=== PATIENT | female | born 2000 | race Two or more races ===

== ENCOUNTER 2022-02-22 08:41 | Inpatient (IN) | payer MEDICAID, OTHER ==
[~2022-02-22] VITALS: Ht 154.9 cm; Wt 54.4 kg
[2022-02-22] MEDS ORDERED: DEXTROSE (50%) 50ML SYRG IV PRN (09:30)
[2022-02-22] MEDS ORDERED: InsuLIN R (HUMAN) 100 UNITS in SODIUM CHL 0.9% 99 ML IV SCH (09:30)
[2022-02-22] MEDS ORDERED: INSULIN LANTUS (GLARGINE) 1 /0.01ml (100units/ml) SC ONE (09:30)
[2022-02-22] MEDS: SODIUM CHLORIDE 0.9% 1,000 ML IV SCH ×6 (10:04→22:10)
[2022-02-22] MEDS: ACCU-CHEK COMFORT CURVE STRIP VI SCH ×9 (10:40→22:40)
[2022-02-22] MEDS ORDERED: ONDANSETRON HCL 4 MG/2 ML VIAL IV ONE (10:45)
[2022-02-22 10:56] LABS: Phosphorus 2.7 mg/dL (2.5-4.90)
[2022-02-22 11:06] LABS: Albumin 3.7 g/dL (3.4-5.0); Calcium 9.9 mg/dL (8.5-10.1); Potassium 5.3 mmol/L (3.5-5.1)
[2022-02-22 11:09] LABS: Bilirubin, Total 0.4 mg/dL (0.2-1.0); Total Protein 9.3 g/dL (6.4-8.2)
[2022-02-22] MEDS ORDERED: MORPHINE SULFATE INJ 2 MG/ml SYRG IV ONE (11:15)
[2022-02-22 11:17] LABS: Urine Bacteria FEW /hpf (None Seen); Urine Blood 2+ /uL (Negative); Urine Mucus FEW (None Seen); Urine Specific Gravity 1.025 (1.001-1.035); Urine WBC 5 /hpf (0 - 5)
[2022-02-22 11:23] LABS: BUN/Creatinine Ratio 23.6
[2022-02-22] MEDS ORDERED: SODIUM BICARBONATE 8.4 % INJ 50ML VIAL IV ONE (11:30)
[2022-02-22] MEDS ORDERED: NITROGLYCERIN 0.4 MG SL TAB SL PRN (12:00)
[2022-02-22] MEDS ORDERED: MORPHINE SULFATE INJ 2 MG/ml SYRG IV PRN (12:00)
[2022-02-22] MEDS ORDERED: SODIUM CHLORIDE 0.9% 1,000 ML IV SCH (13:30)
[2022-02-22 14:54] LABS: Basophils # (auto) 0.2 10 ^3/uL (0-0.2); Basophils % (auto) 0.8 % (0.0-2.0); Eosinophils # (auto) 0 10 ^3/uL (0-0.8); Eosinophils % (auto) 0.1 % (0.0-7.0); Hematocrit 38.7 % (36.0-46.0); Hemoglobin 13.1 g/dL (12.2-16.2); Lymphocytes % (auto) 4.3 % (10.0-50.0); Mean Corpuscular Hemoglobin 31.4 pg (28.0-32.0); Mean Corpuscular Hgb Conc. 33.9 g/dL (32.0-36.0); Mean Corpuscular Volume 92.5 fL (80.0-100.0); Monocytes # (auto) 1.4 10 ^3/uL (0-1.3); Monocytes % (auto) 5.8 % (0.0-12.0); Neutrophils # (auto) 21.1 10 ^3/uL (1.6-8.6); Red Blood Cells 4.19 10^6/uL (4.0-5.20); Red Cell Distribution Width 12.3 % (11.8-14.3); White Blood Cell 23.7 10^3/uL (4.4-10.8)
[2022-02-22 15:06] LABS: BUN/Creatinine Ratio 22.6; Calcium 8.6 mg/dL (8.5-10.1); Potassium 3.8 mmol/L (3.5-5.1)
[2022-02-22] MEDS ORDERED: SOD CHL 0.9%/ KCL 20MEQ 1,000 ML IV PRN (15:45)
[2022-02-22] MEDS ORDERED: LORazepam 0.5 MG TAB PO PRN (15:45)
[2022-02-22] MEDS ORDERED: cefTRIAXone 1GM/50ML D5W 50 ML IV ONE (15:45)
[2022-02-22] MEDS ORDERED: DOCUSATE SOD 100 MG CAP PO PRN (15:45)
[2022-02-22] MEDS ORDERED: PANTOPRAZOLE 40 MG/10 ML VIAL INJ IV ONE (15:45)
[2022-02-22] MEDS ORDERED: SODIUM CHLORIDE 0.9% 2,000 ML IV ONE (15:45)
[2022-02-22] MEDS ORDERED: hydrALAZINE HCL 20 MG/ML VL IV PRN (15:45)
[2022-02-22] MEDS ORDERED: LACTATED RINGER'S 2,000 ML IV ONE (15:45)
[2022-02-22] MEDS ORDERED: D5W/SOD CHLO 0.9% 1,000 ML IV PRN (15:45)
[2022-02-22 16:00] VITALS: BP 116/79
[2022-02-22] MEDS ORDERED: ALBUTEROL SULF 2.5 MG/0.5ML(0.5%) NEB SOLN NEB PRN (16:00)
[2022-02-22 16:16] LABS: Magnesium 2.8 mg/dL (1.6-2.6); Phosphorus 2.7 mg/dL (2.5-4.90)
[2022-02-22] MEDS: ONDANSETRON HCL 4 MG/2 ML VIAL IV PRN ×2 (16:49→22:03)
[2022-02-22] MEDS ORDERED: D5W 5% 1,000 ML IV PRN (17:45)
[2022-02-22 18:33] LABS: BUN/Creatinine Ratio 24.8; Calcium 8.1 mg/dL (8.5-10.1); Potassium 3.6 mmol/L (3.5-5.1)
[2022-02-22 18:38] LABS: INR 0.97 (0.9-1.15); Partial Thromboplastin Time 27.4 sec (23.6-33.0)
[2022-02-22] MEDS: ACETAMINOPHEN 325 MG TAB PO PRN (22:03)
[2022-02-22 22:39] LABS: BUN/Creatinine Ratio 19.4; Calcium 8.2 mg/dL (8.5-10.1); Potassium 3.3 mmol/L (3.5-5.1)
[2022-02-23] MEDS: ACCU-CHEK COMFORT CURVE STRIP VI SCH ×8 (00:04→21:04)
[2022-02-23 01:28] LABS: Calcium 7.8 mg/dL (8.5-10.1); Potassium 3.1 mmol/L (3.5-5.1)
[2022-02-23] MEDS: SODIUM CHLORIDE 0.9% 1,000 ML IV SCH ×4 (01:45→16:04)
[2022-02-23] MEDS: ONDANSETRON HCL 4 MG/2 ML VIAL IV PRN ×2 (04:54→15:45)
[2022-02-23] MEDS ORDERED: DEXTROSE (50%) 50ML SYRG IV PRN (05:30)
[2022-02-23 06:00] LABS: Basophils # (auto) 0 10 ^3/uL (0-0.2); Basophils % (auto) 0.1 % (0.0-2.0); Eosinophils # (auto) 0 10 ^3/uL (0-0.8); Hematocrit 32.5 % (36.0-46.0); Hemoglobin 11.3 g/dL (12.2-16.2); Lymphocytes # (auto) 1.1 10 ^3/uL (0.4-5.4); Lymphocytes % (auto) 7.4 % (10.0-50.0); Mean Corpuscular Hemoglobin 30.9 pg (28.0-32.0); Mean Corpuscular Hgb Conc. 34.8 g/dL (32.0-36.0); Mean Corpuscular Volume 88.9 fL (80.0-100.0); Monocytes # (auto) 1.2 10 ^3/uL (0-1.3); Neutrophils # (auto) 13.1 10 ^3/uL (1.6-8.6); Neutrophils % (auto) 84.5 % (37.0-80.0); Nucleated Red Blood Cells % 0.1 %; Red Blood Cells 3.66 10^6/uL (4.0-5.20); Red Cell Distribution Width 12.1 % (11.8-14.3); White Blood Cell 15.4 10^3/uL (4.4-10.8)
[2022-02-23 06:07] LABS: Albumin 2.5 g/dL (3.4-5.0); Calcium 8.1 mg/dL (8.5-10.1); Potassium 3.4 mmol/L (3.5-5.1)
[2022-02-23 06:11] LABS: BUN/Creatinine Ratio 14.9; Bilirubin, Total 0.2 mg/dL (0.2-1.0); Total Protein 6.5 g/dL (6.4-8.2)
[2022-02-23] MEDS ORDERED: PROMETHAZINE HCL 25 MG/ML 1ML IM ONE (06:15)
[2022-02-23] MEDS ORDERED: PROMETHAZINE HCL 25 MG/ML 1ML IV ONE (06:15)
[2022-02-23] MEDS ORDERED: BENAZEPRIL HCL 10 MG TAB PO SCH (10:00)
[2022-02-23] MEDS: PANTOPRAZOLE 40 MG/10 ML VIAL INJ IV SCH (10:02)
[2022-02-23] MEDS: cefTRIAXone 1GM/50ML D5W 50 ML IV SCH (10:02)
[2022-02-23] MEDS: ENOXAPARIN SOD 40 MG/0.4 ML SYRINGE SC SCH (10:03)
[2022-02-23] MEDS: INSULIN LANTUS (GLARGINE) 1 /0.01ml (100units/ml) SC SCH (10:03)
[2022-02-23 10:14] VITALS: BP 109/71
[2022-02-23 10:55] VITALS: BP 109/71
[2022-02-23] MEDS: ACETAMINOPHEN 325 MG TAB PO PRN (11:15)
[2022-02-23] MEDS: InsuLIN REG 1unit/0.01ml Soln (100units/ml) SC SCH ×4 (11:22→20:00)
[2022-02-23 12:44] LABS: BUN/Creatinine Ratio 11.5; Calcium 7.5 mg/dL (8.5-10.1); Potassium 3.3 mmol/L (3.5-5.1)
[2022-02-23] MEDS: MORPHINE SULFATE INJ 2 MG/ml SYRG IV PRN ×2 (15:46→21:45)
[2022-02-23] MEDS: SOD CHL 0.9%/ KCL 20MEQ 1,000 ML IV SCH ×2 (16:30→20:00)
[2022-02-23 16:56] VITALS: BP 132/82
[2022-02-23] MEDS ORDERED: INSU70IN3 SC (17:15)
[2022-02-23 22:00] VITALS: BP 120/75
[2022-02-24] MEDS: ACCU-CHEK COMFORT CURVE STRIP VI SCH ×5 (04:12→17:04)
[2022-02-24] MEDS: InsuLIN REG 1unit/0.01ml Soln (100units/ml) SC SCH ×5 (04:19→17:05)
[2022-02-24 04:51] VITALS: BP 131/86
[2022-02-24 06:19] LABS: Basophils # (auto) 0 10 ^3/uL (0-0.2); Basophils % (auto) 0.1 % (0.0-2.0); Eosinophils # (auto) 0 10 ^3/uL (0-0.8); Eosinophils % (auto) 0.1 % (0.0-7.0); Hematocrit 29.8 % (36.0-46.0); Hemoglobin 10.6 g/dL (12.2-16.2); Lymphocytes # (auto) 1.4 10 ^3/uL (0.4-5.4); Lymphocytes % (auto) 10.5 % (10.0-50.0); Mean Corpuscular Hgb Conc. 35.7 g/dL (32.0-36.0); Mean Corpuscular Volume 89.6 fL (80.0-100.0); Monocytes # (auto) 1.2 10 ^3/uL (0-1.3); Monocytes % (auto) 9.2 % (0.0-12.0); Neutrophils # (auto) 10.4 10 ^3/uL (1.6-8.6); Neutrophils % (auto) 80.1 % (37.0-80.0); Red Blood Cells 3.33 10^6/uL (4.0-5.20); Red Cell Distribution Width 11.9 % (11.8-14.3)
[2022-02-24 06:29] LABS: Calcium 7.6 mg/dL (8.5-10.1); Magnesium 2.1 mg/dL (1.6-2.6)
[2022-02-24 06:35] LABS: BUN/Creatinine Ratio 10.4
[2022-02-24 06:43] LABS: Potassium 2.6 mmol/L (3.5-5.1)
[2022-02-24 09:00] VITALS: BP 134/84
[2022-02-24] MEDS ORDERED: POTASSIUM CHL 20 Meq TABLET PO ONE (10:00)
[2022-02-24] MEDS: INSULIN LANTUS (GLARGINE) 1 /0.01ml (100units/ml) SC SCH (10:02)
[2022-02-24] MEDS: cefTRIAXone 1GM/50ML D5W 50 ML IV SCH (10:02)
[2022-02-24] MEDS: PANTOPRAZOLE 40 MG/10 ML VIAL INJ IV SCH (10:02)
[2022-02-24] MEDS: ENOXAPARIN SOD 40 MG/0.4 ML SYRINGE SC SCH (10:03)
[2022-02-24] MEDS ORDERED: DEXTROSE (50%) 50ML SYRG IV PRN (11:15)
[2022-02-24] MEDS: POTASSIUM CHL 20MEQ/100ML 100 ML IV SCH ×2 (11:28→16:30)
[2022-02-24 13:00] VITALS: BP 141/87
[2022-02-24] MEDS ORDERED: INSLANTI SC (13:34)
[2022-02-24] MEDS ORDERED: POTASSIUM CHL 20MEQ/100ML 100 ML IV ONE (16:17)
[2022-02-24 16:35] VITALS: BP 139/87
[2022-02-24 20:30] VITALS: BP 119/75
[2022-02-24 21:00] VITALS: BP 119/75
== END 2022-02-24 21:30 | disposition home or self-care (01) | DRG 420 ==
LOC: ER 08:41 → TELE 11:46 → TELE-WESTW 02-23 08:52
PROVIDERS: ADMIT Hospitalist; ATTEND Internal Medicine
DX: E10.10 Type 1 diabetes mellitus with ketoacidosis without coma (principal); N17.0 Acute kidney failure with tubular necrosis; R65.10 Systemic inflammatory response syndrome (SIRS) of non-infectious origin without acute organ dysfunction; E87.6 Hypokalemia; K29.00 Acute gastritis without bleeding; N18.31 Chronic kidney disease, stage 3a; E10.22 Type 1 diabetes mellitus with diabetic chronic kidney disease; J45.909 Unspecified asthma, uncomplicated; Z20.822 Contact with and (suspected) exposure to COVID-19; Z91.19 Patient's noncompliance with other medical treatment and regimen; Z79.4 Long term (current) use of insulin; Z83.3 Family history of diabetes mellitus
CPT/HCPCS: 36415; 36600; 71045; 80048; 80053; 80061; 81001; 82010; 82550; 82728; 82805; 82962; 83036; 83615; 83735; 83880; 83930; 84100; 84132; 84439; 84443; 84484; 84702; 85025; 85379; 85610; 85652; 85730; 87040; 87086; 93005; 96365; 96372; 96375; 99291; C9113; G0378; J0696; J1815; J2405; J3480

== ENCOUNTER 2022-08-01 00:41 | Inpatient (IN) | payer MEDICAID ==
[~2022-08-01] VITALS: Ht 167.6 cm; Wt 50.0 kg
[~2022-08-01 00:41] MED LIST: INSLANTI SC; INSU70IN3 SC
[2022-08-01] MEDS ORDERED: DEXTROSE 50% SYRINGE 100 ML IV ONE (00:59)
[2022-08-01] MEDS ORDERED: DEXTROSE (50%) 50ML SYRG IV ONE ×2 (01:30)
[2022-08-01] MEDS ORDERED: SODIUM CHLORIDE 0.9% 1,000 ML IVB ONE (02:00)
[2022-08-01 02:11] LABS: INR 1.03 (0.9-1.15); Partial Thromboplastin Time 29.9 sec (24.6-33.4)
[2022-08-01 02:13] LABS: Albumin 3.7 g/dL (3.4-5.0); BUN/Creatinine Ratio 21.5; Magnesium 2.1 mg/dL (1.6-2.6); Potassium 3.4 mmol/L (3.5-5.1)
[2022-08-01 02:33] LABS: Basophils # (auto) 0 10 ^3/uL (0-0.2); Basophils % (auto) 0.2 % (0.0-2.0); Eosinophils # (auto) 0.1 10 ^3/uL (0-0.8); Eosinophils % (auto) 0.7 % (0.0-7.0); Hematocrit 36.1 % (36.0-46.0); Hemoglobin 12.4 g/dL (12.2-16.2); Lymphocytes # (auto) 1.6 10 ^3/uL (0.4-5.4); Lymphocytes % (auto) 15.7 % (10.0-50.0); Mean Corpuscular Hemoglobin 30.2 pg (28.0-32.0); Mean Corpuscular Hgb Conc. 34.2 g/dL (32.0-36.0); Mean Corpuscular Volume 88.3 fL (80.0-100.0); Monocytes # (auto) 0.7 10 ^3/uL (0-1.3); Monocytes % (auto) 6.7 % (0.0-12.0); Neutrophils # (auto) 7.7 10 ^3/uL (1.6-8.6); Neutrophils % (auto) 76.7 % (37.0-80.0); Red Blood Cells 4.09 10^6/uL (4.0-5.20); Red Cell Distribution Width 15.5 % (11.8-14.3); White Blood Cell 10.1 10^3/uL (4.4-10.8)
[2022-08-01 02:44] LABS: Bilirubin, Total 0.3 mg/dL (0.2-1.0); Calcium 9.1 mg/dL (8.5-10.1); Total Protein 7.3 g/dL (6.4-8.2)
[2022-08-01 02:48] LABS: Urine Bacteria MOD /hpf (None Seen); Urine Blood Negative /uL (Negative); Urine WBC 5 /hpf (0 - 5)
[2022-08-01 02:58] LABS: Alcohol, Urine < 3.0 mg/dL (0-10); Amphetamine Screen, Urine NEGATIVE (NEGATIVE); Barbiturate Scree,Urine NEGATIVE (NEGATIVE); Benzodiazephine Screen, Urine NEGATIVE (NEGATIVE); Cannabinoid Screen, Urine NEGATIVE (NEGATIVE); Cocaine Screen, Urine NEGATIVE (NEGATIVE); Opiate Scree,Urine NEGATIVE (NEGATIVE); Phencyclidine Screen, Urine NEGATIVE (NEGATIVE)
[2022-08-01] MEDS ORDERED: DEXTROSE (50%) 50ML SYRG IV PRN (06:30)
[2022-08-01] MEDS ORDERED: ONDANSETRON HCL 4 MG/2 ML VIAL IV PRN (06:30)
[2022-08-01] MEDS ORDERED: DOCUSATE SOD 100 MG CAP PO PRN (06:30)
[2022-08-01] MEDS ORDERED: HYDROcodone-ACET 5/325MG TAB PO PRN (06:30)
[2022-08-01] MEDS ORDERED: POTASSIUM CHL 20 Meq TABLET PO ONE (06:30)
[2022-08-01] MEDS ORDERED: MORPHINE SULFATE INJ 2 MG/ml SYRG IV PRN (07:00)
[2022-08-01] MEDS ORDERED: NITROGLYCERIN 0.4 MG SL TAB SL PRN (07:00)
[2022-08-01 07:15] LABS: Calcium 8.3 mg/dL (8.5-10.1); Potassium 3.7 mmol/L (3.5-5.1)
[2022-08-01 07:18] LABS: Bilirubin, Total 0.3 mg/dL (0.2-1.0); Total Protein 6.1 g/dL (6.4-8.2)
[2022-08-01] MEDS: SODIUM CHLOR 0.9% PF (SALINE LOCK) 10ML VIAL/SYR IV SCH ×2 (08:14→08:15)
[2022-08-01] MEDS: ACETAMINOPHEN 325 MG TAB PO PRN ×5 (08:16→12:39)
[2022-08-01] MEDS ORDERED: InsuLIN REG 1unit/0.01ml Soln (100units/ml) SC SCH ×2 (12:00→18:00)
[2022-08-01] MEDS ORDERED: ACCU-CHEK COMFORT CURVE STRIP VI SCH (12:00)
[2022-08-01 12:35] VITALS: BP 124/67
== END 2022-08-01 15:11 | disposition left against medical advice (07) | DRG 420 ==
LOC: EDBD 00:41 → EDUNIT# 00:41 → ER 00:41 → OVERFLOW 06:49
PROVIDERS: ADMIT Nurse Practitioner Family; ATTEND Family Medicine
DX: E10.649 Type 1 diabetes mellitus with hypoglycemia without coma (principal); E10.65 Type 1 diabetes mellitus with hyperglycemia; Z53.29 Procedure and treatment not carried out because of patient's decision for other reasons; E87.6 Hypokalemia; J45.909 Unspecified asthma, uncomplicated; Z20.822 Contact with and (suspected) exposure to COVID-19; T38.3X1A Poisoning by insulin and oral hypoglycemic [antidiabetic] drugs, accidental (unintentional), initial encounter; Z82.1 Family history of blindness and visual loss; Z82.49 Family history of ischemic heart disease and other diseases of the circulatory system; Z83.3 Family history of diabetes mellitus; Z90.49 Acquired absence of other specified parts of digestive tract; Y92.89 Other specified places as the place of occurrence of the external cause
CPT/HCPCS: 36415; 70450; 71045; 80053; 80307; 80320; 81001; 81025; 82962; 83036; 83605; 83735; 84484; 85025; 85379; 85610; 85730; 87040; 87426; 96361; 96372; 96374; 99291; G0378; J1815

== ENCOUNTER → 2024-02-28 | Outpatient (CLI) | payer MEDICAID ==
[2024-02-28 15:11] LABS: Basophils # (auto) 0 10 ^3/uL (0-0.2); Basophils % (auto) 0.5 % (0.0-2.0); Eosinophils # (auto) 0.1 10 ^3/uL (0-0.8); Eosinophils % (auto) 1.9 % (0.0-7.0); Hematocrit 32.8 % (36.0-46.0); Hemoglobin 11.1 g/dL (12.2-16.2); Lymphocytes # (auto) 1.7 10 ^3/uL (0.4-5.4); Lymphocytes % (auto) 32.1 % (10.0-50.0); Mean Corpuscular Hemoglobin 30.5 pg (28.0-32.0); Mean Corpuscular Hgb Conc. 33.9 g/dL (32.0-36.0); Mean Corpuscular Volume 89.9 fL (80.0-100.0); Monocytes # (auto) 0.6 10 ^3/uL (0-1.3); Monocytes % (auto) 11.2 % (0.0-12.0); Neutrophils # (auto) 2.9 10 ^3/uL (1.6-8.6); Neutrophils % (auto) 54.3 % (37.0-80.0); Nucleated Red Blood Cells % 0.1 %; Red Blood Cells 3.65 10^6/uL (4.0-5.20); Red Cell Distribution Width 12.1 % (11.8-14.3); White Blood Cell 5.4 10^3/uL (4.4-10.8)
[2024-02-28 15:41] LABS: % Iron Saturation 39.9 % (15-50)
[2024-02-28 15:43] LABS: Ferritin 44.4 ng/mL (10-291)
[2024-02-28 15:44] LABS: Folate (Folic Acid) 13.92 ng/mL (>5.38)
== END | disposition home or self-care (01) ==
LOC: LAB 14:19
PROVIDERS: ATTEND Internal Medicine
DX: I10 Essential (primary) hypertension (principal); D64.9 Anemia, unspecified; E10.69 Type 1 diabetes mellitus with other specified complication; E10.29 Type 1 diabetes mellitus with other diabetic kidney complication
CPT/HCPCS: 36415; 82607; 82728; 82746; 83540; 83550; 85025

== ENCOUNTER 2024-03-14 18:41 | Emergency (ER) | payer MEDICAID ==
[~2024-03-14] VITALS: Ht 154.9 cm; Wt 76.6 kg
[2024-03-14 19:00] VITALS: BP 190/86; PULSE 87; RESP 18; O2SAT 99
[2024-03-14] MEDS ORDERED: FURO20TA3 PO (19:43)
== END 2024-03-14 19:42 | disposition home or self-care (01) ==
LOC: ER 18:41
DX: R60.0 Localized edema (principal); J45.909 Unspecified asthma, uncomplicated; E11.9 Type 2 diabetes mellitus without complications; Z98.890 Other specified postprocedural states; Z79.899 Other long term (current) drug therapy

== ENCOUNTER → 2024-03-18 | Outpatient (CLI) | payer MEDICAID ==
[~2024-03-18] MED LIST changes: +FURO20TA3 PO
[2024-03-18 12:45] LABS: Basophils # (auto) 0 10 ^3/uL (0-0.2); Basophils % (auto) 0.5 % (0.0-2.0); Eosinophils # (auto) 0.2 10 ^3/uL (0-0.8); Eosinophils % (auto) 2.4 % (0.0-7.0); Hematocrit 30.9 % (36.0-46.0); Hemoglobin 10.5 g/dL (12.2-16.2); Lymphocytes # (auto) 3.3 10 ^3/uL (0.4-5.4); Lymphocytes % (auto) 48.7 % (10.0-50.0); Mean Corpuscular Hemoglobin 30.7 pg (28.0-32.0); Mean Corpuscular Hgb Conc. 34.1 g/dL (32.0-36.0); Mean Corpuscular Volume 90.1 fL (80.0-100.0); Monocytes # (auto) 0.5 10 ^3/uL (0-1.3); Monocytes % (auto) 7.8 % (0.0-12.0); Neutrophils # (auto) 2.7 10 ^3/uL (1.6-8.6); Neutrophils % (auto) 40.6 % (37.0-80.0); Nucleated Red Blood Cells % 0.1 %; Red Blood Cells 3.43 10^6/uL (4.0-5.20); Red Cell Distribution Width 13.3 % (11.8-14.3); White Blood Cell 6.8 10^3/uL (4.4-10.8)
[2024-03-18 13:13] LABS: Anion Gap 5 (5-15); Carbon Dioxide 20 mmol/L (20-30); Chloride 110 mmol/L (98-107); Potassium 4.6 mmol/L (3.5-5.1); Sodium 135 mmol/L (136-145)
[2024-03-18 13:14] LABS: Calcium 8.7 mg/dL (8.5-10.1)
[2024-03-18 13:19] LABS: BUN/Creatinine Ratio 18.1 (10.0-20.0); Blood Urea Nitrogen 19 mg/dL (9-23); Glucose 101 mg/dL (74-106)
== END | disposition home or self-care (01) ==
LOC: LAB 12:24
PROVIDERS: ATTEND Internal Medicine
DX: I10 Essential (primary) hypertension (principal); E10.69 Type 1 diabetes mellitus with other specified complication; D64.9 Anemia, unspecified; E10.29 Type 1 diabetes mellitus with other diabetic kidney complication; T67.01 Heatstroke and sunstroke; X58.XXXS Exposure to other specified factors, sequela
CPT/HCPCS: 36415; 80048; 83880; 85025

== ENCOUNTER 2024-11-07 10:20 | Inpatient (IN) | payer MEDICAID ==
[~2024-11-07] VITALS: Ht 154.9 cm; Wt 73.9 kg
--- NOTE | 2024-11-07 10:50 | ED.PDOC ---
History of Present Illness HPI Comments 23 y/o F, presents to the ED for CC of abnormal labs. Patient states, she had a routine appointment with her PCP provider this morning (11/07/24) when she was relayed to the ED for a further evaluation due to high potassium levels and decreased kidney function. Patient comments on, associated symptoms of left leg swelling. Patient denies fever, chest pain, back pain, flank pain, dizziness, nausea, or vomiting. No other associated symptom's, modifiers, recent injuries or sick contact at this time. Chief Complaint: Abnormal LAB's Time Seen by MD: 10:30 Primary Care Provider: CHIRAG Reviewed Notes: Nurses Notes, Medications, Allergies Allergies: Coded Allergies: NO KNOWN ALLERGIES (Unverified , 02/22/22) Home Meds Active Scripts Furosemide (Furosemide) 20 Mg Tab, 1 TAB PO DAILY, #30 TAB 0 Refills Prov:ROBERT RUVALCABA PAC 03/14/24 Insulin Glargine (Lantus) 100 Unit/Ml Inj, 20 UNIT SC HS for 30 Days, #30 INJ Prov:ENDY DANIELSON MD 02/24/22 Reported Medications Insulin NPH Isophane & Reg (Hu (Novolin 70/30 (70-30) 100 Unit/ml) 1 Inj Inj, 1 INJ SC TID, INJ 02/23/22 Information Source: Patient Mode of Arrival: Ambulatory Severity: Mild Timing: Hours Duration: Since onset Prehospital treatment: None Past Medical History PAST MEDICAL HISTORY: Asthma, DM Surgical History: Cholecystectomy ACTIVITY SPECIALIST History: No Pertinent ACTIVITY SPECIALIST History Family History Family History: Reviewed,noncontributory to illness Social History Smoker: Non-Smoker Alcohol: Denies ETOH Use Drugs: Denies Drug Use Lives In: Home Constitutional: denies: chills, diaphoresis, fatigue, fever, malaise, sweats, weakness, others EENTM: denies: blurred vision, double vision, ear bleeding, ear discharge, ear drainage, ear pain, ear ringing, eye pain, eye redness, hearing loss, mouth pain, mouth swelling, nasal discharge, nose bleeding, nose congestion, nose pain, photophobia, tearing, throat pain, throat swelling, voice changes, others Respiratory: denies: cough, hemoptysis, orthopnea, SOB at rest, shortness of breath, SOB with excertion, stridor, wheezing, others Cardiovascular: denies: chest pain, dizzy spells, diaphoresis, Dyspnea on exertion, edema, irregular heart beat, left arm pain, lightheadedness, palpitations, PND, syncope, others Gastrointestinal: denies: abdomen distended, abdominal pain, blood streaked bowels, constipated, diarrhea, dysphagia, difficulty swallowing, hematemesis, melena, nausea, poor appetite, poor fluid intake, rectal bleeding, rectal pain, vomiting, others Genitourinary: denies: abnormal vagina bleeding, burning, dyspareunia, dysuria, flank pain, frequency, hematuria, incontinence, pain, , vagina discharge, urgency, others Neurological: denies: dizziness, fainting, headache, left sided numbness, left sided weakness, numbness, paresthesia, pre-existing deficit, right sided numbness, right sided weakness, seizure, speech problems, tingling, tremors, weakness, others Musculoskeletal: denies: back pain, gout, joint pain, joint swelling, muscle pain, muscle stiffness, neck pain, others Integumetry: denies: bruises, change in color, change in hair/nails, dryness, laceration, lesions, lumps, rash, wounds, others Allergic/Immunocompromised: denies: Difficulty Healing, Frequent Infections, Hives, Itching, others Hematologic/Lymphatic: denies: anemia, blood clots, easy bleeding, easy bruising, swollen glands, others Endocrine: denies: excessive hunger, excessive sweating, excessive thirst, excessive urination, flushing, intolerance to cold, intolerance to heat, unexplained weight gain, unexplained weight loss, others Psychiatric: denies: anxiety, bipolar disorder, depression, hopeless, panic disorder, schizophrenia, sleepless, suicidal, others All Other Systems: Reviewed and Negative Physical Exam General Appearance: Moderate Distress HEENT: Normal ENT Inspection, Pharynx Normal, TMs Normal Neck: Full Range of Motion, Non-Tender, Normal, Normal Inspection Respiratory: Chest Non-Tender, Lungs Clear, No Accessory Muscle Use, No Respiratory Distress, Normal Breath Sounds Cardiovascular: No Edema, No JVD, No Murmur, No Gallop, Normal Peripheral Pulses, Regular Rate/Rhythm Breast Exam: Deferred Gastrointestinal: No Organomegaly, Non Tender, No Pulsatile Mass, Normal Bowel Sounds, Soft Genitalia: Deferred Pelvic: Deferred Rectal: Deferred Extremities: Swelling (Left lower extremity) Musculoskeletal : Apperance: Normal Neurologic: Alert, willow worker II-XII nml as Tested, No Motor Deficits, Normal Affect, Normal Mood, No Sensory Deficits Cerebellar Function: Normal Reflexes: Normal Skin: Dry, Normal Color, Warm Peripheral Pulses: 3+ Radial (R), 3+ Radial (L) Lymphatic: No Adenopathy Was a procedure done? Was a procedure done?: No Differential Dx Considerations may include: Anemia Electrolyte imbalance X-Ray, Labs, Meds, VS Vital Signs Date Time Temp Pulse Resp B/P (MAP) Pulse Ox O2 Delivery O2 Flow Rate FiO2 11/07/24 14:15 152/85 11/07/24 13:05 98.5 76 16 155/86 (109) 100 98.5 11/07/24 13:05 76 16 100 Room Air* 0 21 11/07/24 12:50 16 99 Room Air* 0 21 11/07/24 10:53 98.3 87 18 156/85 (108) 99 Lab Test 11/07/24 16:10 11/07/24 14:19 11/07/24 11:23 Range/Units Potassium Level 4.9 5.3 H 3.5-5.1 mmol/L Urine Color Yellow Yellow Urine Clarity Hazy H Clear Urine pH 6.5 5.0-9.0 Urine Specific [place] 1.018 1.001-1.035 Urine Protein 3+ H Negative Urine Ketones Negative Negative Urine Blood 1+ H Negative /uL Urine Nitrite Negative Negative Urine Bilirubin Negative Negative Urine Urobilinogen Normal Negative mg/dL Urine Leukocyte Esterase Negative Negative /uL Urine RBC 1 0 - 4 /hpf Urine Microscopic WBC 10 H 0-5 /HPF Urine Squamous Epithelial Cells Mod <5 /hpf Urine Bacteria Few H None Seen /hpf Urine Glucose 2+ H Normal mg/dL White Blood Count 5.7 4.4-10.8 10^3/uL Red Blood Count 3.36 L 4.0-5.20 10^6/uL Hemoglobin 10.6 L 12.2-16.2 g/dL Hematocrit 31.1 L 36.0-46.0 % Mean Corpuscular Volume 92.7 80.0-100.0 fL Mean Corpuscular Hemoglobin 31.5 28.0-32.0 pg Mean Corpuscular Hemoglobin Concent 34.0 32.0-36.0 g/dL Red Cell Distribution Width 12.8 11.8-14.3 % Platelet Count 343 140-450 10^3/uL Mean Platelet Volume 7.5 6.9-10.8 fL Neutrophils (%) (Auto) 58.4 37.0-80.0 % Lymphocytes (%) (Auto) 27.4 10.0-50.0 % Monocytes (%) (Auto) 11.3 0.0-12.0 % Eosinophils (%) (Auto) 2.1 0.0-7.0 % Basophils (%) (Auto) 0.8 0.0-2.0 % Neutrophils # (Auto) 3.3 1.6-8.6 10 ^3/uL Lymphocytes # (Auto) 1.6 0.4-5.4 10 ^3/uL Monocytes # (Auto) 0.6 0-1.3 10 ^3/uL Eosinophils # (Auto) 0.1 0-0.8 10 ^3/uL Basophils # (Auto) 0 0-0.2 10 ^3/uL Nucleated Red Blood Cells 0.0 % Sodium Level 139 136-145 mmol/L Chloride Level 110 H 98-107 mmol/L Carbon Dioxide Level 22 20-31 mmol/L Anion Gap 7 5-15 Blood Urea Nitrogen 22 9-23 mg/dL Creatinine 1.49 H 0.550-1.02 mg/dL Glomerular Filtration Rate Calc 50 >90 mL/min BUN/Creatinine Ratio 14.8 10.0-20.0 Serum Glucose 224 H 74-106 mg/dL Calcium Level 9.0 8.7-10.4 mg/dL Current Medications Medications (Trade) Dose Ordered Sig/Piedad Route Start Time Stop Time Status Last Admin Albuterol (Ventolin Medneb) 20 mg ONCE ONCE NEB 11/07/24 12:30 11/07/24 12:31 DC 11/07/24 12:30 Furosemide (Lasix Injection) 20 mg ONCE ONCE IV 11/07/24 12:30 11/07/24 12:31 DC 11/07/24 14:15 Zirconium Oxide (Lokelma) 10 gm ONCE ONCE PO 11/07/24 12:30 11/07/24 12:31 DC 11/07/24 13:00 [facility] [id number] [place] [id number] Ph: [phone] DIAGNOSTIC IMAGING Diagnostic Imaging Report : [id number] Signed PATIENT: MARIO HALL ACCT: [id number] UNIT: [id number] : 2000 LOC: ER ROOM / BED: / AGE / SEX: 23 / F ADM STATUS: REG ER SERVICE [id number] ORDERING PHYSICIAN: AKIL HALEY MD PROCEDURE(s): LLDVT - LT Lower DVT REASON: dvt ORDER NUMBER(s): [id number], ACCESSION NUMBER(s): [id number] Left lower extremity venous duplex Clinical History: dvt Comparison: None Technique: Duplex Doppler evaluation of the deep venous system of the left lower extremity from the common femoral vein to the popliteal vein including color Doppler and spectral/pulsed waveform analysis was performed. Findings: The common femoral vein demonstrates appropriate compressibility and waveform variability. There is compressibility/patency of the great saphenous vein at the proximal th igh. The femoral vein demonstrates appropriate compressibility and waveform variability. The deep femoral vein demonstrates appropriate compressibility and waveform variability. The popliteal vein demonstrates appropriate compressibility and waveform va riability. There is normal compressibility at the tibioperoneal trunk. Impression: No left femoropopliteal venous thrombosis. ATED BY: RUSTY MENDEZ MD DICTATED DATE/TIME: 11/07/24 1141 SIGNED BY: RUSTY MENDEZ MD SIGNED DATE/TIME: 11/07/24 1141 CC: Patient alert. Came in because of elevated potassium level. Possibly false positive. Vitals stable. She does have swelling of the left lower extremity. No shortness a breath. No chest pain. Potassium elevated. Hyperkalemia treatment. Blood sugar elevated. Explained to the patient. Continue to monitor. Time of 1ST Reevaluation: 11:00 Reevaluation 1ST: Improved Patient Education/Counseling: Diagnosis, Treatment Family Education/Counseling: No Family Present Additional Information I reviewed the following notes from patient's past medical history: 03/14/24 DX: 1+ PITTING EDEMA The following tests were ordered, and results were reviewed by me: LT LOWER DVT US, CBC, UA, BMP I reviewed and agreed with the following test results read by other providers: LT LOWER DVT US I discussed treatment and results with medical personnel and: PATIENT Departure 1 Departure Time of Disposition: 10:55 Impression: Primary Impression: Uncontrolled diabetes mellitus Qualified Codes: E13.65 - Other specified diabetes mellitus with hyperglycemia Additional Impression: Hyperkalemia Disposition: ADMITTED INPATIENT Admit to: Med Surg Condition: Guarded Critical Care Note Critical Care Time?: No Stability Stability form required: No Heart Score Heart Score: Heart Score Response (Comments) Value History N/A 0 EKG N/A 0 Age N/A 0 Risk Factors N/A 0 Troponin N/A 0 Total 0 I personally scribed for AKIL HALEY MD ([email or web address]) on 11/07/24 at 10:50. Electronically submitted by Paty Zamora ([employer]). I personally scribed for AKIL HALEY MD ([email or web address]) on 11/07/24 at 11:01. Electronically submitted by Paty Zamora ([facility]). I personally scribed for AKIL HALEY MD ([email or web address]) on 11/07/24 at 17:07. Electronically submitted by Paty Zamora ([facility]). AKIL HALEY MD Nov 07, 2024 10:50
--- NOTE | 2024-11-07 11:43 | DVH ---
Left lower extremity venous duplex Clinical History: dvt Comparison: None Technique: Duplex Doppler evaluation of the deep venous system of the left lower extremity from the common femor al vein to the popliteal vein including color Doppler and spectral/pulsed waveform analysis was perfo rmed. Findings: The common femoral vein demonstrates appropriate compressibility and waveform variability. There is compressibility/patency of the great saphenous vein at the proximal thigh. The femoral vein demonstrates appropriate compressibility and waveform variability. The deep femoral vein demonstrates appropriate compressibility and waveform variability. The popliteal vein demonstrates appropriate compressibility and waveform variability. There is normal compressibility at the tibioperoneal trunk. Impression: No left femoropopliteal venous thrombosis.
[2024-11-07 12:08] LABS: Basophils # (auto) 0 10 ^3/uL (0-0.2); Basophils % (auto) 0.8 % (0.0-2.0); Eosinophils # (auto) 0.1 10 ^3/uL (0-0.8); Eosinophils % (auto) 2.1 % (0.0-7.0); Hematocrit 31.1 % (36.0-46.0); Hemoglobin 10.6 g/dL (12.2-16.2); Lymphocytes # (auto) 1.6 10 ^3/uL (0.4-5.4); Lymphocytes % (auto) 27.4 % (10.0-50.0); Mean Corpuscular Hemoglobin 31.5 pg (28.0-32.0); Mean Corpuscular Volume 92.7 fL (80.0-100.0); Monocytes # (auto) 0.6 10 ^3/uL (0-1.3); Monocytes % (auto) 11.3 % (0.0-12.0); Neutrophils # (auto) 3.3 10 ^3/uL (1.6-8.6); Neutrophils % (auto) 58.4 % (37.0-80.0); Platelet Count (auto) 343 10^3/uL (140-450); Red Blood Cells 3.36 10^6/uL (4.0-5.20); Red Cell Distribution Width 12.8 % (11.8-14.3); Sodium 139 mmol/L (136-145); White Blood Cell 5.7 10^3/uL (4.4-10.8)
[2024-11-07 12:09] LABS: Anion Gap 7 (5-15); Carbon Dioxide 22 mmol/L (20-31)
[2024-11-07 12:14] LABS: BUN/Creatinine Ratio 14.8 (10.0-20.0); Blood Urea Nitrogen 22 mg/dL (9-23)
[2024-11-07 12:18] LABS: Chloride 110 mmol/L (98-107); Glucose 224 mg/dL (74-106); Potassium 5.3 mmol/L (3.5-5.1)
[2024-11-07] MEDS: ALBUTEROL SULF 2.5 MG/0.5ML(0.5%) NEB SOLN NEB ONE (12:30)
[2024-11-07] MEDS: SODIUM ZIRCONIUM CYCL 10 GM PAK PO ONE (13:00)
[2024-11-07 13:05] VITALS: PULSE 76; RESP 16; O2SAT 100
[2024-11-07] MEDS: FUROSEMIDE 20 MG/2 ML VIAL IV ONE (14:15)
[2024-11-07 14:25] LABS: Urine Bacteria FEW /hpf (None Seen); Urine Blood 1+ /uL (Negative); Urine Color Yellow (Yellow); Urine Protein, UAD 3+ (Negative); Urine Specific Gravity 1.018 (1.001-1.035); Urine Squamous Epithelial Cell MOD /hpf (<5); Urine Urobilinogen Normal (Negative); Urine WBC 10 /HPF (0-5); Urine pH 6.5 (5.0-9.0)
[2024-11-07 14:37] LABS: Urine Clarity Hazy (Clear)
[2024-11-07 20:00] VITALS: PULSE 89; RESP 16; O2SAT 100
[2024-11-07] MEDS: DEXTROSE (50%) 50ML SYRG IV ONE (21:13)
[2024-11-07] MEDS: CALCIUM GLUC 1,000mg/50ml-NS 50 ML IV ONE (21:13)
[2024-11-07] MEDS: InsuLIN REG 1unit/0.01ml Soln (100units/ml) IV ONE (21:14)
[2024-11-07] MEDS: SODIUM BICARB 8.4% 50Meq/50ml SYR INJ IV ONE (21:14)
[2024-11-07 21:35] LABS: Triglycerides 136 mg/dL (< 150)
[2024-11-07 21:36] LABS: LDL Cholesterol 66 mg/dL (< 100)
[2024-11-07 21:38] LABS: Cholesterol 137 mg/dL (< 200); HDL Cholesterol 51 mg/dL (40-59)
--- NOTE | 2024-11-07 21:40 | DVHHPRES ---
History of Present Illness Resident Creating Document: RAMIREZ FERNÁNDEZ History of Present Illness This is a 23-year-old female with past medical history of hypertension, asthma, type 1 diabetes mellitus diagnosed since the age of [age] years old (patient has an insulin pump). The patient presented to the ED referred by her PCP due to hyperkalemia and decreased kidney function. The patient reports that she has been having bilateral lower extremity swelling that is more prominent on the left lower extremity. The patient is denies fever/chills, chest pain, shortness of breath, abdominal pain or any other additional symptoms. Initial labs showed a WBC of 5.7, hemoglobin of 10.6, potassium was 5.3, BUN 22 and creatinine 1.49. Blood glucose was 224. Urinalysis came back suggesting UTI, we ordered a bilateral lower extremity venous Doppler which showed no evidence of DVT at this time. We will order kidney ultrasound and renal artery ultrasound to check for fibromuscular dysplasia or renal artery stenosis. We will also order urine protein, urine protein to creatinine ratio to calculate total urine protein for possible nephrotic syndrome. Patient will be admitted for further assessment and management. Cardiovascular: HTN Pulmonary: Asthma Endocrine: Diabetes (Type 1 diabetes since 9 years of age and is currently using an insulin pump) Past Surgical History: None Family History: None Smoke: No ALCOHOL: none Drugs: None Lives: with Family Domestic Violence: Neg Review of Systems Constitutional: No: Fever, Chills, Sweats, Weakness, Malaise, Other Eyes: No: Pain, Vision change, Conjunctivae inflammation, Eyelid inflammation, Other, Redness ENT: No: Ear pain, Ear discharge, Nose pain, Nose discharge, Nose congestion, Mouth pain, Mouth swelling, Throat pain, Throat swelling, Other Respiratory: No: Cough, Dry, Shortness of breath, SOB with excertion, Wheezing, Hemoptysis, Pleuritic Pain, Sputum, Wheezing, Other Cardiovascular: No: Chest Pain, Palpitations, Orthopnea, Paroxysmal Noc. Dyspnea, Edema, Lt Headedness, Other Gastrointestinal: No: Nausea, Vomiting, Abdominal Pain, Diarrhea, Constipation, Melena, Hematochezia, Other Genitourinary: No Dysuria, No Frequency, No Incontinence, No Hematuria, No Retention, No Other Musculoskeletal: other (Bilateral lower extremity edema that is more prominent on the left lower extremity); No: neck pain, shoulder pain, arm pain, back pain, hand pain, leg pain, foot pain Skin: No: Rash, Lesions, Jaundice, Bruising, Other Neurological: No: Weakness, Numbness, Incoordination, Change in speech, Confusion, Seizures, Other Allergies: Coded Allergies: NO KNOWN ALLERGIES (Unverified , 02/22/22) Medications Current Medications Medications Dose Ordered Sig/Piedad Route Start Time Stop Time Status Last Admin Dose Admin Acetaminophen 650 mg Q6HP PRN PO 11/07/24 21:00 Exam Vital Signs Vital Signs Date Time Temp Pulse Resp B/P (MAP) Pulse Ox O2 Delivery O2 Flow Rate FiO2 11/07/24 14:15 152/85 11/07/24 13:05 98.5 76 16 100 98.5 11/07/24 13:05 Room Air* 0 21 General Appearance: Alert, Oriented X3, Cooperative, No acute distress HEENT: Atraumatic, PERRLA, EOMI, Mucous membr. moist/pink Respiratory: Clear to auscultation, Normal air movement Cardiovascular: Regular rate, Normal S1, Normal S2, No murmurs Abdominal: Normal bowel sounds, Soft, No tenderness, No hepatospenomegaly Extremities: No clubbing, No cyanosis, No edema, Normal pulses, Other (There is bilateral lower extremity swelling that is more prominent on the left lower extremity.) Skin: No rashes, No breakdown, No significant lesion Neuro: Normal gait, Normal speech, Strength at 5/5 X4 ext, Normal tone, Sensation intact, Cranial nerves 3-12 NL, Reflexes 2+ Psych/Mental Status: Mental status NL, Mood NL Labs/Xrays Labs Test 11/07/24 20:49 11/07/24 16:10 11/07/24 14:19 11/07/24 11:23 Range/Units Potassium Level 4.9 3.5-5.1 mmol/L Urine Color Yellow Yellow Urine Clarity Hazy H Clear Urine pH 6.5 5.0-9.0 Urine Specific [place] 1.018 1.001-1.035 Urine Protein 3+ H Negative Urine Ketones Negative Negative Urine Blood 1+ H Negative /uL Urine Nitrite Negative Negative Urine Bilirubin Negative Negative Urine Urobilinogen Normal Negative mg/dL Urine Leukocyte Esterase Negative Negative /uL Urine RBC 1 0 - 4 /hpf Urine Microscopic WBC 10 H 0-5 /HPF Urine Squamous Epithelial Cells Mod <5 /hpf Urine Bacteria Few H None Seen /hpf Urine Glucose 2+ H Normal mg/dL White Blood Count 5.7 4.4-10.8 10^3/uL Red Blood Count 3.36 L 4.0-5.20 10^6/uL Hemoglobin 10.6 L 12.2-16.2 g/dL Hematocrit 31.1 L 36.0-46.0 % Mean Corpuscular Volume 92.7 80.0-100.0 fL Mean Corpuscular Hemoglobin 31.5 28.0-32.0 pg Mean Corpuscular Hemoglobin Concent 34.0 32.0-36.0 g/dL Red Cell Distribution Width 12.8 11.8-14.3 % Platelet Count 343 140-450 10^3/uL Mean Platelet Volume 7.5 6.9-10.8 fL Neutrophils (%) (Auto) 58.4 37.0-80.0 % Lymphocytes (%) (Auto) 27.4 10.0-50.0 % Monocytes (%) (Auto) 11.3 0.0-12.0 % Eosinophils (%) (Auto) 2.1 0.0-7.0 % Basophils (%) (Auto) 0.8 0.0-2.0 % Neutrophils # (Auto) 3.3 1.6-8.6 10 ^3/uL Lymphocytes # (Auto) 1.6 0.4-5.4 10 ^3/uL Monocytes # (Auto) 0.6 0-1.3 10 ^3/uL Eosinophils # (Auto) 0.1 0-0.8 10 ^3/uL Basophils # (Auto) 0 0-0.2 10 ^3/uL Nucleated Red Blood Cells 0.0 % Sodium Level 139 136-145 mmol/L Chloride Level 110 H 98-107 mmol/L Carbon Dioxide Level 22 20-31 mmol/L Anion Gap 7 5-15 Blood Urea Nitrogen 22 9-23 mg/dL Creatinine 1.49 H 0.550-1.02 mg/dL Glomerular Filtration Rate Calc 50 >90 mL/min BUN/Creatinine Ratio 14.8 10.0-20.0 Serum Glucose 224 H 74-106 mg/dL Calcium Level 9.0 8.7-10.4 mg/dL Assessment/Plan Assessment/Plan Assessment/plan KD on CKD Nephrotic syndrome, possible diabetic nephropathy? R/O fibromuscular dysplasia -young 23-year-old female with hypertension recent onset of lisinopril and KD -ordered kidney ultrasound -urinalysis showed 3+ protein -ordered renal artery Doppler -ordered urine protein, urine protein to creatinine ratio Acute hyperkalemia -potassium on admission was 5.3 -hyperkalemia protocol administered, insulin 10 units, dextrose, albuterol, Lasix, bicarb amp, Lokelma and calcium amp -currently potassium level more stable, on range -stop lisinopril at this time UTI -UA suggesting UTI -Start IV ceftriaxone Primary hypertension -stop lisinopril which could be contributing to hyperkalemia -Hydralazine 25mg BID -Monitor BP closely Type 1 diabetes mellitus (diagnosed at the age of [age] years old) -currently on insulin pump -monitor blood glucose closely Asthma, stable -currently on room air, monitor Goals of care discussed with the patient at bedside for >30min, FULL CODE Discussed with Dr. Melara Plan discussed with: Patient My Orders Orders - RAMIREZ FERNÁNDEZ Procedure Category Date Status Time Admit ADMIT 11/07/24 Transmitted 20:49 Code Status CODE 11/07/24 Transmitted 20:49 Vital Signs NEFTALI 11/07/24 In Process 20:49 Review Orders With NEFTALI 11/07/24 In Process Adm. 20:49 Encourage Activity As NEFTALI 11/07/24 In Process Tolerate 20:49 Regular Diet DIET 11/08/24 Transmitted Breakfast Acetaminophen Tablet PHA 11/07/24 In Process (Tylenol Tablet) 21:00 Notify Of Changes NEFTALI 11/07/24 In Process From Base 20:49 Advance Directive NEFTALI 11/07/24 In Process 20:49 Basic Metabolic Panel LAB 11/08/24 Verified 04:00 Lipid Panel LAB 11/07/24 In Process 20:49 Urine Bacterial ROCCO 11/07/24 Logged Culture 20:49 Patient Condition ORDERS 11/07/24 Transmitted 20:49 Allergies NEFTALI 11/07/24 In Process 20:49 Drug Screen LAB 11/07/24 Logged 20:49 Hemoglobin A1c LAB 11/07/24 In Process 20:49 Renal Artery Lmtd US 11/07/24 Logged 20:59 Urine LAB 11/07/24 Logged Protein/Creatinine Urine Protein LAB 11/07/24 Logged 20:59 Date of Service: Nov 07, 2024 Billing Provider: RISHI MELARA MD Common Visit Codes: [id number] INP/OBS CARE (HIGH) RAMIREZ FERNÁNDEZ RESIDENT Nov 07, 2024 21:40 RISHI MELARA MD Nov 08, 2024 11:19
[2024-11-07 22:26] VITALS: BP 162/87; PULSE 82; TEMP 98.4; O2SAT 100
[2024-11-07 22:36] LABS: Creatinine, Urine 93.22 mg/dL (30.0-125.0)
[2024-11-07 22:39] LABS: Amphetamine Screen, Urine Neg (NEGATIVE); Barbiturate Scree,Urine Neg (NEGATIVE); Benzodiazephine Screen, Urine Neg (NEGATIVE); Cannabinoid Screen, Urine Neg (NEGATIVE); Cocaine Screen, Urine Neg (NEGATIVE); Opiate Scree,Urine Neg (NEGATIVE); Phencyclidine Screen, Urine Neg (NEGATIVE); Urine Protein/Creatinine Ratio 7.88
[2024-11-07] MEDS: hydrALAZINE HCL 25 MG TAB PO SCH (22:39)
[2024-11-07] MEDS: ACETAMINOPHEN 325 MG TAB PO PRN (22:41)
[2024-11-07 23:23] VITALS: BP 137/90; PULSE 82; RESP 18; TEMP 98; O2SAT 99
[2024-11-08] VITALS (7 sets, daily range): BP systolic 114–148; BP diastolic 71–89; PULSE 55–94; RESP 16–19; TEMP 97.5–98.3; O2SAT 98–99
[2024-11-08] MEDS ORDERED: DEXTROSE (50%) 50ML SYRG IV PRN (01:45)
[2024-11-08] MEDS: ACCU-CHEK COMFORT CURVE STRIP VI SCH (06:25)
[2024-11-08] MEDS: cefTRIAXone 1GM/50ML D5W 50 ML IV SCH (06:25)
[2024-11-08] MEDS: InsuLIN REG 1unit/0.01ml Soln (100units/ml) SC SCH (06:33)
[2024-11-08 06:52] LABS: Basophils # (auto) 0 10 ^3/uL (0-0.2); Basophils % (auto) 0.4 % (0.0-2.0); Eosinophils # (auto) 0.1 10 ^3/uL (0-0.8); Eosinophils % (auto) 1.3 % (0.0-7.0); Hemoglobin 10.4 g/dL (12.2-16.2); Lymphocytes % (auto) 33.7 % (10.0-50.0); Mean Corpuscular Hemoglobin 31.2 pg (28.0-32.0); Mean Corpuscular Hgb Conc. 33.5 g/dL (32.0-36.0); Mean Corpuscular Volume 93.3 fL (80.0-100.0); Monocytes # (auto) 0.9 10 ^3/uL (0-1.3); Monocytes % (auto) 14.6 % (0.0-12.0); Nucleated Red Blood Cells % 0.1 %; Platelet Count (auto) 312 10^3/uL (140-450); Red Blood Cells 3.33 10^6/uL (4.0-5.20); Red Cell Distribution Width 12.8 % (11.8-14.3); White Blood Cell 6.1 10^3/uL (4.4-10.8)
[2024-11-08 07:02] LABS: Alanine Aminotransferase 20 U/L (7-40); Albumin 3.4 g/dL (3.2-4.8); Alkaline Phosphatase 85 U/L (46-116); Anion Gap 9 (5-15); Aspartate Aminotransferase 20 U/L (13-40); BUN/Creatinine Ratio 17.8 (10.0-20.0); Bilirubin, Total 0.3 mg/dL (0.2-1.0); Calcium 8.7 mg/dL (8.7-10.4); Sodium 138 mmol/L (136-145)
[2024-11-08 07:04] LABS: Blood Urea Nitrogen 26 mg/dL (9-23); Carbon Dioxide 18 mmol/L (20-31); Chloride 111 mmol/L (98-107); Glucose 174 mg/dL (74-106); Potassium 5.2 mmol/L (3.5-5.1); Total Protein 5.4 g/dL (5.7-8.2)
--- NOTE | 2024-11-08 09:27 | DVHINCON2 ---
Date of service: Nov 08, [address] Odell Reason for Consultation Acute kidney injury History of Present Illness Patient is 23-year-old female with past medical history of diabetes mellitus type 1 since age of 9 and asthma patient is admitted for abnormal lab and bilateral lower extremity swelling. On admission patient found to have elevated creatinine nephrology is consulted for acute kidney injury Past Medical History PAST MEDICAL HISTORY: Asthma, DM type 1 since age 9 Past Surgical History Surgical History: Cholecystectomy Allergies: Coded Allergies: NO KNOWN ALLERGIES (Unverified , 02/22/22) Home Meds Active Scripts Furosemide (Furosemide) 20 Mg Tab, 1 TAB PO DAILY, #30 TAB 0 Refills Prov:ROBERT RUVALCABA PAC 03/14/24 Insulin Glargine (Lantus) 100 Unit/Ml Inj, 20 UNIT SC HS for 30 Days, #30 INJ Prov:ENDY DANIELSON MD 02/24/22 Reported Medications Insulin NPH Isophane & Reg (Hu (Novolin 70/30 (70-30) 100 Unit/ml) 1 Inj Inj, 1 INJ SC TID, INJ 02/23/22 Current Medications Current Medications Medications (Trade) Dose Ordered Sig/Piedad Route PRN Reason Start Time Stop Time Status Last Admin Acetaminophen (Tylenol Tablet) 650 mg Q6HP PRN PO PAIN SCALE 1-3 OR TEMP>100.4 11/07/24 21:00 11/07/24 22:41 Hydralazine HCl (Apresoline Tablet) 25 mg BID PO 11/07/24 22:00 11/08/24 09:44 Diagnostic Test (Pha) (Accu-Chek Comfort Curve T) 1 strip ACHS 11/08/24 07:00 11/08/24 11:30 Insulin Human Regular (InsuLIN R) ACHS SC 11/08/24 07:00 11/08/24 12:26 Dextrose 50 ml UD PRN IV Blood Sugar LESS THAN 60 11/08/24 01:45 Ceftriaxone Sodium 50 ml @ 100 mls/hr Q24H IV 11/08/24 05:30 11/08/24 06:25 Furosemide (Lasix Injection) 40 mg DAILY IV 11/08/24 14:00 Family History: Alcoholism FHx: blindness G8 FATHER FHx: diabetes mellitus G8 MOTHER G8 FATHER FHx: heart failure G8 MOTHER G8 FATHER FHx: kidney disease G8 MOTHER FHx: neuropathy G8 MOTHER Glaucoma in mother G8 MOTHER Hepatitis B G8 FATHER Review of Systems All 12 item review of systems reviewed with the patient nonsignificant except what is mentioned in the history of present illness H&P Exam Vital Signs/I&O Vital Sign Date Time Temp Pulse Resp B/P (MAP) Pulse Ox O2 Delivery O2 Flow Rate FiO2 11/08/24 09:44 136/77 11/08/24 09:00 97.7 81 17 98 97.7 11/08/24 08:00 Room Air* 0 21 Intake and Output 11/07/24 11/08/24 19:00 07:00 Intake Total 540 ml Balance 540 ml Intake Oral 540 ml # Voids 4 Physical Exam Patient is awake and alert Lungs clear to auscultation bilaterally Cardiac exam regular rate and rhythm GI soft nontender was normal Extremities 1+ pitting edema bilaterally Neuro nonfocal Labs/Diagnostic Data Labs/Diagnostic Data Laboratory Tests Test 11/08/24 06:20 11/08/24 05:37 11/07/24 16:10 11/07/24 14:19 Range/Units POC Glucose 190 H 70-106 mg/dl White Blood Count 6.1 4.4-10.8 10^3/uL Red Blood Count 3.33 L 4.0-5.20 10^6/uL Hemoglobin 10.4 L 12.2-16.2 g/dL Hematocrit 31.0 L 36.0-46.0 % Mean Corpuscular Volume 93.3 80.0-100.0 fL Mean Corpuscular Hemoglobin 31.2 28.0-32.0 pg Mean Corpuscular Hemoglobin Concent 33.5 32.0-36.0 g/dL Red Cell Distribution Width 12.8 11.8-14.3 % Platelet Count 312 140-450 10^3/uL Mean Platelet Volume 7.8 6.9-10.8 fL Neutrophils (%) (Auto) 50.0 37.0-80.0 % Lymphocytes (%) (Auto) 33.7 10.0-50.0 % Monocytes (%) (Auto) 14.6 H 0.0-12.0 % Eosinophils (%) (Auto) 1.3 0.0-7.0 % Basophils (%) (Auto) 0.4 0.0-2.0 % Neutrophils # (Auto) 3.0 1.6-8.6 10 ^3/uL Lymphocytes # (Auto) 2.0 0.4-5.4 10 ^3/uL Monocytes # (Auto) 0.9 0-1.3 10 ^3/uL Eosinophils # (Auto) 0.1 0-0.8 10 ^3/uL Basophils # (Auto) 0 0-0.2 10 ^3/uL Nucleated Red Blood Cells 0.1 % Sodium Level 138 136-145 mmol/L Potassium Level 5.2 H 4.9 3.5-5.1 mmol/L Chloride Level 111 H 98-107 mmol/L Carbon Dioxide Level 18 L 20-31 mmol/L Anion Gap 9 5-15 Blood Urea Nitrogen 26 H 9-23 mg/dL Creatinine 1.46 H 0.550-1.02 mg/dL Glomerular Filtration Rate Calc 51 >90 mL/min BUN/Creatinine Ratio 17.8 10.0-20.0 Serum Glucose 174 H 74-106 mg/dL Calcium Level 8.7 8.7-10.4 mg/dL Total Bilirubin 0.3 0.2-1.0 mg/dL Aspartate Amino Transferase (AST) 20 13-40 U/L Alanine Aminotransferase (ALT) 20 7-40 U/L Alkaline Phosphatase 85 46-116 U/L Total Protein 5.4 L 5.7-8.2 g/dL Albumin 3.4 3.2-4.8 g/dL Triglycerides Level 136 < 150 mg/dL Cholesterol Level 137 < 200 mg/dL LDL Cholesterol 66 < 100 mg/dL HDL Cholesterol 51 40-59 mg/dL Urine Color Yellow Yellow Urine Clarity Hazy H Clear Urine pH 6.5 5.0-9.0 Urine Specific [place] 1.018 1.001-1.035 Urine Protein 3+ H Negative Urine Ketones Negative Negative Urine Blood 1+ H Negative /uL Urine Nitrite Negative Negative Urine Bilirubin Negative Negative Urine Urobilinogen Normal Negative mg/dL Urine Leukocyte Esterase Negative Negative /uL Urine RBC 1 0 - 4 /hpf Urine Microscopic WBC 10 H 0-5 /HPF Urine Squamous Epithelial Cells Mod <5 /hpf Urine Bacteria Few H None Seen /hpf Urine Creatinine 93.22 30.0-125.0 mg/dL Urine Protein/Creatinine Ratio 7.88 Urine Glucose 2+ H Normal mg/dL Urine Total Protein 735.0 H 1-14 mg/dL Urine Opiates Screen Neg NEGATIVE Urine Fentanyl Screen Neg NEGATIVE Urine Barbiturates Screen Neg NEGATIVE Urine Phencyclidine Screen Neg NEGATIVE Urine Amphetamines Screen Neg NEGATIVE Urine Benzodiazepines Screen Neg NEGATIVE Urine Cocaine Screen Neg NEGATIVE Urine Cannabinoids Screen Neg NEGATIVE Test 11/07/24 11:23 Range/Units White Blood Count 5.7 4.4-10.8 10^3/uL Red Blood Count 3.36 L 4.0-5.20 10^6/uL Hemoglobin 10.6 L 12.2-16.2 g/dL Hematocrit 31.1 L 36.0-46.0 % Mean Corpuscular Volume 92.7 80.0-100.0 fL Mean Corpuscular Hemoglobin 31.5 28.0-32.0 pg Mean Corpuscular Hemoglobin Concent 34.0 32.0-36.0 g/dL Red Cell Distribution Width 12.8 11.8-14.3 % Platelet Count 343 140-450 10^3/uL Mean Platelet Volume 7.5 6.9-10.8 fL Neutrophils (%) (Auto) 58.4 37.0-80.0 % Lymphocytes (%) (Auto) 27.4 10.0-50.0 % Monocytes (%) (Auto) 11.3 0.0-12.0 % Eosinophils (%) (Auto) 2.1 0.0-7.0 % Basophils (%) (Auto) 0.8 0.0-2.0 % Neutrophils # (Auto) 3.3 1.6-8.6 10 ^3/uL Lymphocytes # (Auto) 1.6 0.4-5.4 10 ^3/uL Monocytes # (Auto) 0.6 0-1.3 10 ^3/uL Eosinophils # (Auto) 0.1 0-0.8 10 ^3/uL Basophils # (Auto) 0 0-0.2 10 ^3/uL Nucleated Red Blood Cells 0.0 % Sodium Level 139 136-145 mmol/L Potassium Level 5.3 H 3.5-5.1 mmol/L Chloride Level 110 H 98-107 mmol/L Carbon Dioxide Level 22 20-31 mmol/L Anion Gap 7 5-15 Blood Urea Nitrogen 22 9-23 mg/dL Creatinine 1.49 H 0.550-1.02 mg/dL Glomerular Filtration Rate Calc 50 >90 mL/min BUN/Creatinine Ratio 14.8 10.0-20.0 Serum Glucose 224 H 74-106 mg/dL Hemoglobin A1c 6.7 H <5.7 % A1C Calcium Level 9.0 8.7-10.4 mg/dL Assessment Acute kidney injury superimposed Chronic Kidney Disease secondary hemodynamic mediated Uncontrolled diabetes mellitus Nephrotic syndrome likely diabetic nephropathy, UPCr > 7 Hyperkalemia Hypertension Anemia of chronic kidney disease Recommendations Closely monitor fluid and electrolytes Avoid nephrotoxic medications Strict I&Os Lokelma Furosemide 40 mg once daily Insulin sliding scale Blood pressure control Check kidney ultrasound We will continue to follow Patient seen and examined by myself. I discussed my plan of care with the patient and primary nurse at the bedside I would like to thank Dr. Odell for the consult, will follow up Plan discussed with: Patient JOHN DAUGHERTY MD Nov 08, 2024 09:27
--- NOTE | 2024-11-08 09:37 | DVH ---
INDICATION: POSSIBLE FIBROMUSCULAR DYSPLASIA (HTN IN VERY YOUNG WOMEN) TECHNIQUE: Multiple real-time sonographic images of the kidneys and bladder were obtained. Duplex Doppler evaluation including color Doppler and spectral/pulsed waveform analysis of the bilate ral renal arteries was performed. COMPARISON: None FINDINGS: The right kidney measures 9.4 cm in length. The right renal echogenicity, contour and cortical thickn ess are within normal limits. No hydronephrosis or large masses/calculi are seen. The left kidney measures 9.9 cm in length. The left renal echogenicity, contour, and cortical thickne ss are within normal limits. No hydronephrosis or large masses/calculi are seen. Aorta peak systolic velocity, 111 cm/s Right renal artery peak systolic velocity, 101 cm/s (< 180 cm/s = normal). Left renal artery peak systolic velocity 149 cm/s (< 180 cm/s = normal). Right RAR : 0.9 (< 3.5, normal) Left RAR 0.8 (< 3.5, normal) Right RI: 0.6 (< 0.75, normal) Left RI: 0.8 (< 0.75, normal) IMPRESSION: No findings to suggest renal artery stenosis. *[employer] Techniques in Noninvasive Vascular Diagnosis 2001
[2024-11-08] MEDS: FUROSEMIDE 40 MG/4 ML VIAL IV SCH (14:05)
[2024-11-08] MEDS: InsuLIN REG 1unit/0.01ml Soln (100units/ml) SC ONE (17:13)
--- NOTE | 2024-11-08 19:39 | DVHPN2 ---
Subjective in bed resting, no nausea or vomiting Changes from previous H/P or p: No Changes Eyes: No Pain, No Vision change, No Conjunctivae inflammation, No Eyelid inflammation, No Other, No Redness ENT: No Ear pain, No Ear discharge, No Nose pain, No Nose discharge, No Nose congestion, No Mouth pain, No Mouth swelling, No Throat pain, No Throat swelling, No Other Cardiovascular: No Chest Pain, No Palpitations, No Orthopnea, No Paroxysmal Noc. Dyspnea, No Edema, No Lt Headedness, No Other Respiratory: No Cough, No Dry, No Shortness of breath, No SOB with excertion, No Wheezing, No Hemoptysis, No Pleuritic Pain, No Sputum, No Other Gastrointestinal: No Nausea, No Vomiting, No Abdominal Pain, No Diarrhea, No Constipation, No Melena, No Hematochezia, No Other Genitourinary: No Dysuria, No Frequency, No Incontinence, No Hematuria, No Retention, No Other Musculoskeletal: other (Bilateral lower extremity edema that is more prominent on the left lower extremity); No neck pain, No shoulder pain, No arm pain, No back pain, No hand pain, No leg pain, No foot pain Skin: No Rash, No Lesions, No Jaundice, No Bruising, No Other Objective Vitals Vital Signs Date Time Temp Pulse Resp B/P (MAP) Pulse Ox O2 Delivery O2 Flow Rate FiO2 11/08/24 17:00 98.1 79 17 133/89 (104) 99 98.1 11/08/24 08:00 Room Air* 0 21 Intake/Output Intake and Output 11/08/24 07:00 Intake Total 540 ml Balance 540 ml Intake Oral 540 ml # Voids 4 General Appearance: Alert, Oriented X3, Cooperative Lungs: Clear to auscultation Cardiovascular: Regular rate, Normal S1 Abdomen: Normal bowel sounds Neuro: Normal gait Medications Current Medications Medications Dose Ordered Sig/Piedad Route Start Time Stop Time Status Last Admin Dose Admin Acetaminophen 650 mg Q6HP PRN PO 11/07/24 21:00 11/07/24 22:41 650 MG Hydralazine HCl 25 mg BID PO 11/07/24 22:00 11/08/24 09:44 25 MG Diagnostic Test (Pha) 1 strip ACHS 11/08/24 07:00 11/08/24 17:14 1 STRIP Insulin Human Regular ACHS SC 11/08/24 07:00 11/08/24 17:13 10 UNITS Dextrose 50 ml UD PRN IV 11/08/24 01:45 Ceftriaxone Sodium 50 ml @ 100 mls/hr Q24H IV 11/08/24 05:30 11/08/24 06:25 100 MLS/HR Furosemide 40 mg DAILY IV 11/08/24 14:00 11/08/24 14:05 40 MG Laboratory Results Laboratory Tests 11/08/24 05:37 Chemistry Test 11/08/24 05:37 Albumin 3.4 g/dL (3.2-4.8) Calcium Level 8.7 mg/dL (8.7-10.4) Total Protein 5.4 g/dL (5.7-8.2) L LFT Test 11/08/24 05:37 Alanine Aminotransferase (ALT) 20 U/L (7-40) Alkaline Phosphatase 85 U/L (46-116) Aspartate Amino Transferase (AST) 20 U/L (13-40) Total Bilirubin 0.3 mg/dL (0.2-1.0) Urinalysis Test 11/07/24 14:19 Urine Color Yellow (Yellow) Urine Clarity Hazy (Clear) H Urine pH 6.5 (5.0-9.0) Urine Specific [place] 1.018 (1.001-1.035) Urine Protein 3+ (Negative) H Urine Ketones Negative (Negative) Urine Blood 1+ /uL (Negative) H Urine Nitrite Negative (Negative) Urine Bilirubin Negative (Negative) Urine Urobilinogen Normal mg/dL (Negative) Urine Leukocyte Esterase Negative /uL (Negative) Urine RBC 1 /hpf (0 - 4) Urine Microscopic WBC 10 /HPF (0-5) H Urine Squamous Epithelial Cells Mod /hpf (<5) Urine Bacteria Few /hpf (None Seen) H Urine Creatinine 93.22 mg/dL (30.0-125.0) Urine Protein/Creatinine Ratio 7.88 Urine Glucose 2+ mg/dL (Normal) H Urine Total Protein 735.0 mg/dL (1-14) H Microbiology Microbiology Date/Time Source Procedure Growth Status 11/08/24 11:00 Voided Urine Urine Culture - Preliminary Resulted Assessment/Plan Assessment/Plan KD on CKD Nephrotic syndrome, possible diabetic nephropathy? R/O fibromuscular dysplasia -young 23-year-old female with hypertension recent onset of lisinopril and KD -ordered kidney ultrasound -urinalysis showed 3+ protein -ordered renal artery Doppler -ordered urine protein, urine protein to creatinine ratio Acute hyperkalemia -potassium on admission was 5.3 -hyperkalemia protocol administered, insulin 10 units, dextrose, albuterol, Lasix, bicarb amp, Lokelma and calcium amp -currently potassium level more stable, on range -stop lisinopril at this time UTI -UA suggesting UTI -Start IV ceftriaxone Primary hypertension -stop lisinopril which could be contributing to hyperkalemia -Hydralazine 25mg BID -Monitor BP closely Type 1 diabetes mellitus (diagnosed at the age of [age] years old) -currently on insulin pump -monitor blood glucose closely Asthma, stable -currently on room air, monitor Plan discussed with: Patient Date of Service: Nov 08, 2024 Billing Provider: ZACKARY STEIN MD Common Visit Codes: [id number] INP/OBS CARE(HIGH) ZACKARY STEIN MD Nov 08, 2024 19:39
[2024-11-09] VITALS (7 sets, daily range): BP systolic 111–149; BP diastolic 63–92; PULSE 76–89; RESP 18–20; TEMP 97.6–98.2; O2SAT 95–99
[2024-11-09 09:07] LABS: Anti-Centromere B Antibody <0.2 AI (0.0-0.9); Anti-Jo-1 Antibody <0.2 AI (0.0-0.9); Anti-dsDNA Antibody 2 IU/mL (0-9); Antichromatin Antibody <0.2 AI (0.0-0.9); Antiscleroderma-70 Antibody <0.2 AI (0.0-0.9); RNP Antibody <0.2 AI (0.0-0.9); Sjogren's Anti-SS-A Antibody <0.2 AI (0.0-0.9); Sjogren's Anti-SS-B Antibody <0.2 AI (0.0-0.9); Smith Antibody <0.2 AI (0.0-0.9)
--- NOTE | 2024-11-09 09:19 | DVHPN2 ---
Progress Note Date Seen: Nov 09, 2024 Medical Necessity Reason Pt with a Central, PICC or Fol: No Subjective Patient reports: No new complaints Other Systems: Patient seen and examined by myself today in follow-up Objective vital signs Vital Sign Date Time Temp Pulse Resp B/P (MAP) Pulse Ox O2 Delivery O2 Flow Rate FiO2 11/09/24 09:07 123/71 11/09/24 05:00 97.7 85 20 95 97.7 11/08/24 20:00 Room Air* 0 21 Total Intake and Output 11/08/24 11/08/24 11/09/24 15:00 23:00 07:00 Intake Total 1080 ml 430 ml Balance 1080 ml 430 ml medications Current Medications Medications Dose Ordered Sig/Piedad Route Start Time Stop Time Status Last Admin Dose Admin Acetaminophen 650 mg Q6HP PRN PO 11/07/24 21:00 11/07/24 22:41 650 MG Hydralazine HCl 25 mg BID PO 11/07/24 22:00 11/09/24 09:07 25 MG Diagnostic Test (Pha) 1 strip ACHS 11/08/24 07:00 11/09/24 06:47 1 STRIP Insulin Human Regular ACHS SC 11/08/24 07:00 11/09/24 06:54 3 UNITS Dextrose 50 ml UD PRN IV 11/08/24 01:45 Ceftriaxone Sodium 50 ml @ 100 mls/hr Q24H IV 11/08/24 05:30 11/09/24 06:54 100 MLS/HR Furosemide 40 mg DAILY IV 11/08/24 14:00 11/09/24 09:07 40 MG Examination: LUNGS:Normal, CVS:Normal, MSK:Abnormal laboratory and microbiology Laboratory Tests 11/09/24 05:47 11/08/24 05:37 Test 11/08/24 05:37 Range/Units Serum Glucose 174 H 74-106 mg/dL Microbiology Date/Time Source Procedure Growth Status 11/08/24 11:00 Voided Urine Urine Culture - Preliminary Resulted Problem List/Assessment/Plan Problem List/Assessment/Plan Acute kidney injury superimposed Chronic Kidney Disease secondary hemodynamic mediated Uncontrolled diabetes mellitus Nephrotic syndrome likely diabetic nephropathy, UPCr > 7 Hyperkalemia Hypertension Anemia of chronic kidney disease Recommendations Kidney function slightly improving Increased urine output Hypokalemia resolved Strict I&Os Furosemide 40 mg once daily Insulin sliding scale Blood pressure control Low-protein diet kidney ultrasound reported within normal We will continue to follow Plan discussed with: Patient My Orders My Orders Orders - JOHN DAUGHERTY MD Procedure Category Date Status Time Furosemide Injection PHA 11/08/24 In Process (Lasix Injection) 14:00 Renal DIET 11/08/24 Transmitted Standard(2gna,3gk,Lopho) Lunch JOHN DAUGHETRY MD Nov 09, 2024 09:19
[2024-11-09 11:25] LABS: Basophils # (auto) 0 10 ^3/uL (0-0.2); Basophils % (auto) 0.8 % (0.0-2.0); Eosinophils # (auto) 0.1 10 ^3/uL (0-0.8); Eosinophils % (auto) 1.8 % (0.0-7.0); Hematocrit 32.3 % (36.0-46.0); Hemoglobin 10.9 g/dL (12.2-16.2); Lymphocytes # (auto) 2.1 10 ^3/uL (0.4-5.4); Lymphocytes % (auto) 36.8 % (10.0-50.0); Mean Corpuscular Hemoglobin 31.5 pg (28.0-32.0); Mean Corpuscular Hgb Conc. 33.6 g/dL (32.0-36.0); Monocytes # (auto) 0.7 10 ^3/uL (0-1.3); Monocytes % (auto) 12.4 % (0.0-12.0); Neutrophils # (auto) 2.7 10 ^3/uL (1.6-8.6); Neutrophils % (auto) 48.2 % (37.0-80.0); Nucleated Red Blood Cells % 0.1 %; Platelet Count (auto) 322 10^3/uL (140-450); Red Blood Cells 3.44 10^6/uL (4.0-5.20); Red Cell Distribution Width 12.5 % (11.8-14.3); White Blood Cell 5.7 10^3/uL (4.4-10.8)
[2024-11-09 11:45] LABS: Alanine Aminotransferase 21 U/L (7-40); Alkaline Phosphatase 93 U/L (46-116); Anion Gap 11 (5-15); Aspartate Aminotransferase 22 U/L (13-40); Chloride 107 mmol/L (98-107)
[2024-11-09 11:46] LABS: Bilirubin, Total 0.3 mg/dL (0.2-1.0); Blood Urea Nitrogen 26 mg/dL (9-23); Calcium 8.6 mg/dL (8.7-10.4); Carbon Dioxide 17 mmol/L (20-31); Glucose 183 mg/dL (74-106); Sodium 135 mmol/L (136-145); Total Protein 5.6 g/dL (5.7-8.2)
[2024-11-09 11:47] LABS: Albumin 3.4 g/dL (3.2-4.8)
[2024-11-09 13:37] LABS: Chloride 100 mmol/L (98-107); Potassium 4.6 mmol/L (3.5-5.1)
[2024-11-09 13:38] LABS: Anion Gap 7 (5-15); Carbon Dioxide 21 mmol/L (20-31)
[2024-11-09 13:39] LABS: Calcium 8.8 mg/dL (8.7-10.4)
[2024-11-09 13:43] LABS: BUN/Creatinine Ratio 14.3 (10.0-20.0)
[2024-11-09 13:54] LABS: Sodium 128 mmol/L (136-145)
[2024-11-09 13:57] LABS: Blood Urea Nitrogen 26 mg/dL (9-23); Glucose 451 mg/dL (74-106)
[2024-11-09] MEDS: SODIUM CHLORIDE 0.9% 1,000 ML IV SCH (14:15)
[2024-11-09] MEDS: InsuLIN REG 1unit/0.01ml Soln (100units/ml) SC ONE (15:10)
--- NOTE | 2024-11-09 17:57 | DVHPN2 ---
Subjective in bed resting, no nausea or vomiting Changes from previous H/P or p: No Changes Eyes: No Pain, No Vision change, No Conjunctivae inflammation, No Eyelid inflammation, No Other, No Redness ENT: No Ear pain, No Ear discharge, No Nose pain, No Nose discharge, No Nose congestion, No Mouth pain, No Mouth swelling, No Throat pain, No Throat swelling, No Other Cardiovascular: No Chest Pain, No Palpitations, No Orthopnea, No Paroxysmal Noc. Dyspnea, No Edema, No Lt Headedness, No Other Respiratory: No Cough, No Dry, No Shortness of breath, No SOB with excertion, No Wheezing, No Hemoptysis, No Pleuritic Pain, No Sputum, No Other Gastrointestinal: No Nausea, No Vomiting, No Abdominal Pain, No Diarrhea, No Constipation, No Melena, No Hematochezia, No Other Genitourinary: No Dysuria, No Frequency, No Incontinence, No Hematuria, No Retention, No Other Musculoskeletal: other (Bilateral lower extremity edema that is more prominent on the left lower extremity); No neck pain, No shoulder pain, No arm pain, No back pain, No hand pain, No leg pain, No foot pain Skin: No Rash, No Lesions, No Jaundice, No Bruising, No Other Objective Vitals Vital Signs Date Time Temp Pulse Resp B/P (MAP) Pulse Ox O2 Delivery O2 Flow Rate FiO2 11/09/24 16:39 97.9 89 18 119/71 (87) 99 97.9 11/09/24 08:00 Room Air* 0 21 Intake/Output Intake and Output 11/09/24 07:00 Intake Total 1510 ml Balance 1510 ml Intake Oral 1510 ml # Voids 9 # Bowel Movements 1 General Appearance: Alert, Oriented X3, Cooperative Lungs: Clear to auscultation Cardiovascular: Regular rate, Normal S1 Abdomen: Normal bowel sounds Neuro: Normal gait Medications Current Medications Medications Dose Ordered Sig/Piedad Route Start Time Stop Time Status Last Admin Dose Admin Acetaminophen 650 mg Q6HP PRN PO 11/07/24 21:00 11/09/24 09:19 650 MG Hydralazine HCl 25 mg BID PO 11/07/24 22:00 11/09/24 09:07 25 MG Diagnostic Test (Pha) 1 strip ACHS 11/08/24 07:00 11/09/24 11:59 1 STRIP Insulin Human Regular ACHS SC 2/21/25 07:00 11/09/24 12:07 10 UNITS Dextrose 50 ml UD PRN IV 11/08/24 01:45 Ceftriaxone Sodium 50 ml @ 100 mls/hr Q24H IV 11/08/24 05:30 11/09/24 06:54 100 MLS/HR Furosemide 40 mg DAILY IV 11/08/24 14:00 11/09/24 09:07 40 MG Sodium Chloride 1,000 ml @ 50 mls/hr Q20H IV 11/09/24 14:15 11/09/24 14:15 50 MLS/HR Laboratory Results Laboratory Tests 11/09/24 10:18 11/09/24 12:56 Chemistry Test 11/09/24 10:18 11/09/24 12:56 Albumin 3.4 g/dL (3.2-4.8) Calcium Level 8.6 mg/dL (8.7-10.4) L 8.8 mg/dL (8.7-10.4) Total Protein 5.6 g/dL (5.7-8.2) L LFT Test 11/09/24 10:18 Alanine Aminotransferase (ALT) 21 U/L (7-40) Alkaline Phosphatase 93 U/L (46-116) Aspartate Amino Transferase (AST) 22 U/L (13-40) Total Bilirubin 0.3 mg/dL (0.2-1.0) Urinalysis Test 11/07/24 14:19 Urine Color Yellow (Yellow) Urine Clarity Hazy (Clear) H Urine pH 6.5 (5.0-9.0) Urine Specific [place] 1.018 (1.001-1.035) Urine Protein 3+ (Negative) H Urine Ketones Negative (Negative) Urine Blood 1+ /uL (Negative) H Urine Nitrite Negative (Negative) Urine Bilirubin Negative (Negative) Urine Urobilinogen Normal mg/dL (Negative) Urine Leukocyte Esterase Negative /uL (Negative) Urine RBC 1 /hpf (0 - 4) Urine Microscopic WBC 10 /HPF (0-5) H Urine Squamous Epithelial Cells Mod /hpf (<5) Urine Bacteria Few /hpf (None Seen) H Urine Creatinine 93.22 mg/dL (30.0-125.0) Urine Protein/Creatinine Ratio 7.88 Urine Glucose 2+ mg/dL (Normal) H Urine Total Protein 735.0 mg/dL (1-14) H Microbiology Microbiology Date/Time Source Procedure Growth Status 11/08/24 11:00 Voided Urine Urine Culture - Preliminary Resulted Assessment/Plan Assessment/Plan KD on CKD Nephrotic syndrome, possible diabetic nephropathy? R/O fibromuscular dysplasia Creat going up from 1.5>1.7>1.8 Acute hyperkalemia -potassium on admission was 5.3 -hyperkalemia protocol administered, insulin 10 units, dextrose, albuterol, Lasix, bicarb amp, Lokelma and calcium amp -currently potassium level more stable, on range -stop lisinopril at this time -K improved back to normal UTI -UA suggesting UTI -Start IV ceftriaxone Primary hypertension -stop lisinopril which could be contributing to hyperkalemia -Hydralazine 25mg BID -Monitor BP closely Type 1 diabetes mellitus (diagnosed at the age of [age] years old) -currently on insulin pump -monitor blood glucose closely Asthma, stable -currently on room air, monitor Plan discussed with: Patient My Orders Orders - ZACKARY STEIN MD Procedure Category Date Status Time Sodium Chloride 0.9% PHA 11/09/24 In Process 14:15 Date of Service: Nov 09, 2024 Billing Provider: ZACKARY STEIN MD Common Visit Codes: [id number] INP/OBS CARE(HIGH) ZACKARY STEIN MD Nov 09, 2024 17:57
[2024-11-10 01:00] VITALS: BP 129/68; PULSE 86; RESP 20; TEMP 98.3; O2SAT 96
[2024-11-10 05:00] VITALS: BP 122/74; PULSE 91; RESP 20; TEMP 98.1; O2SAT 96
[2024-11-10 08:00] VITALS: PULSE 84; RESP 15
[2024-11-10 09:06] VITALS: BP 126/76; PULSE 84; RESP 15; TEMP 98.5; O2SAT 97
--- NOTE | 2024-11-10 10:01 | DVHPN2 ---
Progress Note Date Seen: Nov 10, 2024 Medical Necessity Reason Pt with a Central, PICC or Fol: No Subjective Patient reports: No new complaints Other Systems: Patient seen and examined by myself today in follow-up Objective vital signs Vital Sign Date Time Temp Pulse Resp B/P (MAP) Pulse Ox O2 Delivery O2 Flow Rate FiO2 11/10/24 09:06 98.5 84 15 126/76 (93) 97 98.5 11/10/24 08:00 Room Air* 0 21 Total Intake and Output 11/09/24 11/09/24 11/10/24 14:59 22:59 06:59 Intake Total 500 ml 390 ml Balance 500 ml 390 ml medications Current Medications Medications Dose Ordered Sig/Piedad Route Start Time Stop Time Status Last Admin Dose Admin Acetaminophen 650 mg Q6HP PRN PO 11/07/24 21:00 11/09/24 09:19 650 MG Hydralazine HCl 25 mg BID PO 11/07/24 22:00 11/09/24 22:24 25 MG Diagnostic Test (Pha) 1 strip ACHS 11/08/24 07:00 11/10/24 06:14 1 STRIP Insulin Human Regular ACHS SC 11/08/24 07:00 11/10/24 06:07 2 UNITS Dextrose 50 ml UD PRN IV 11/08/24 01:45 Ceftriaxone Sodium 50 ml @ 100 mls/hr Q24H IV 11/08/24 05:30 11/10/24 06:06 100 MLS/HR Sodium Chloride 1,000 ml @ 50 mls/hr Q20H IV 11/09/24 14:15 11/09/24 14:15 50 MLS/HR Examination: LUNGS:Normal, CVS:Normal, MSK:Normal laboratory and microbiology Laboratory Tests 11/09/24 12:56 11/09/24 10:18 Test 11/09/24 12:56 Range/Units Serum Glucose 451 *H 74-106 mg/dL Microbiology Date/Time Source Procedure Growth Status 11/08/24 11:00 Voided Urine Urine Culture - Preliminary Resulted Problem List/Assessment/Plan Problem List/Assessment/Plan Acute kidney injury superimposed Chronic Kidney stage IIIB Disease secondary hemodynamic mediated Uncontrolled diabetes mellitus Nephrotic syndrome likely diabetic nephropathy, UPCr > 7 Hyperkalemia Hypertension Anemia of chronic kidney disease Hyponatremia due to water retention Recommendations Kidney function continues to improve Increased urine output Hypokalemia resolved Strict I&Os DC IV fluid Fluid restrictions Furosemide 40 mg once daily Insulin sliding scale Blood pressure control Low-protein diet kidney ultrasound reported within normal I will sign off this case please refer to my clinic two weeks after discharge for Chronic Kidney Disease follow-up Thank you for the consult Plan discussed with: Patient Dietary Evaluation Review Comments: 1. Consider CCHO 60G add on to diet 2. Refer to hospital educator for follow up Expected Outcomes/Goals: 1. Pt labs will trend towards WNL in 3-5 days JOHN DAUGHERTY MD Nov 10, 2024 10:01
[2024-11-10 11:17] LABS: Basophils # (auto) 0 10 ^3/uL (0-0.2); Basophils % (auto) 0.4 % (0.0-2.0); Eosinophils # (auto) 0.1 10 ^3/uL (0-0.8); Eosinophils % (auto) 1.8 % (0.0-7.0); Hematocrit 31.5 % (36.0-46.0); Hemoglobin 10.6 g/dL (12.2-16.2); Lymphocytes # (auto) 1.6 10 ^3/uL (0.4-5.4); Lymphocytes % (auto) 26.8 % (10.0-50.0); Mean Corpuscular Hemoglobin 31.3 pg (28.0-32.0); Mean Corpuscular Hgb Conc. 33.8 g/dL (32.0-36.0); Mean Corpuscular Volume 92.6 fL (80.0-100.0); Monocytes # (auto) 0.6 10 ^3/uL (0-1.3); Monocytes % (auto) 9.6 % (0.0-12.0); Neutrophils # (auto) 3.7 10 ^3/uL (1.6-8.6); Neutrophils % (auto) 61.4 % (37.0-80.0); Nucleated Red Blood Cells % 0.1 %; Platelet Count (auto) 301 10^3/uL (140-450); Red Cell Distribution Width 12.4 % (11.8-14.3)
[2024-11-10 11:29] LABS: Alanine Aminotransferase 25 U/L (7-40); Albumin 3.6 g/dL (3.2-4.8); Alkaline Phosphatase 93 U/L (46-116); Anion Gap 7 (5-15); Aspartate Aminotransferase 28 U/L (13-40); BUN/Creatinine Ratio 16.9 (10.0-20.0); Carbon Dioxide 21 mmol/L (20-31); Chloride 103 mmol/L (98-107); Potassium 4.9 mmol/L (3.5-5.1)
[2024-11-10 11:30] LABS: Bilirubin, Total 0.2 mg/dL (0.2-1.0); Blood Urea Nitrogen 28 mg/dL (9-23); Calcium 8.3 mg/dL (8.7-10.4); Glucose 362 mg/dL (74-106); Sodium 131 mmol/L (136-145); Total Protein 5.8 g/dL (5.7-8.2)
[2024-11-10 13:00] VITALS: BP 131/80; PULSE 91; RESP 15; TEMP 98.5; O2SAT 97
--- NOTE | 2024-11-10 14:32 | DVHDS2 ---
Discharge Summary Date of Admission Nov 07, 2024 at 20:49 Date of Discharge: Nov 10, 2024 Labs/Diagnostic Data: Laboratory Results Test 11/10/24 11:45 11/10/24 10:48 11/07/24 16:10 11/07/24 14:19 POC Glucose 358 mg/dl (70-106) White Blood Count 6.0 10^3/uL (4.4-10.8) Red Blood Count 3.40 10^6/uL (4.0-5.20) Hemoglobin 10.6 g/dL (12.2-16.2) Hematocrit 31.5 % (36.0-46.0) Mean Corpuscular Volume 92.6 fL (80.0-100.0) Mean Corpuscular Hemoglobin 31.3 pg (28.0-32.0) Mean Corpuscular Hemoglobin Concent 33.8 g/dL (32.0-36.0) Red Cell Distribution Width 12.4 % (11.8-14.3) Platelet Count 301 10^3/uL (140-450) Mean Platelet Volume 7.6 fL (6.9-10.8) Neutrophils (%) (Auto) 61.4 % (37.0-80.0) Lymphocytes (%) (Auto) 26.8 % (10.0-50.0) Monocytes (%) (Auto) 9.6 % (0.0-12.0) Eosinophils (%) (Auto) 1.8 % (0.0-7.0) Basophils (%) (Auto) 0.4 % (0.0-2.0) Neutrophils # (Auto) 3.7 10 ^3/uL (1.6-8.6) Lymphocytes # (Auto) 1.6 10 ^3/uL (0.4-5.4) Monocytes # (Auto) 0.6 10 ^3/uL (0-1.3) Eosinophils # (Auto) 0.1 10 ^3/uL (0-0.8) Basophils # (Auto) 0 10 ^3/uL (0-0.2) Nucleated Red Blood Cells 0.1 % Sodium Level 131 mmol/L (136-145) Potassium Level 4.9 mmol/L (3.5-5.1) Chloride Level 103 mmol/L (98-107) Carbon Dioxide Level 21 mmol/L (20-31) Anion Gap 7 (5-15) Blood Urea Nitrogen 28 mg/dL (9-23) Creatinine 1.66 mg/dL (0.550-1.02) Glomerular Filtration Rate Calc 44 mL/min (>90) BUN/Creatinine Ratio 16.9 (10.0-20.0) Serum Glucose 362 mg/dL (74-106) Calcium Level 8.3 mg/dL (8.7-10.4) Total Bilirubin 0.2 mg/dL (0.2-1.0) Aspartate Amino Transferase (AST) 28 U/L (13-40) Alanine Aminotransferase (ALT) 25 U/L (7-40) Alkaline Phosphatase 93 U/L (46-116) Total Protein 5.8 g/dL (5.7-8.2) Albumin 3.6 g/dL (3.2-4.8) Triglycerides Level 136 mg/dL (< 150) Cholesterol Level 137 mg/dL (< 200) LDL Cholesterol 66 mg/dL (< 100) HDL Cholesterol 51 mg/dL (40-59) Urine Color Yellow (Yellow) Urine Clarity Hazy (Clear) Urine pH 6.5 (5.0-9.0) Urine Specific [place] 1.018 (1.001-1.035) Urine Protein 3+ (Negative) Urine Ketones Negative (Negative) Urine Blood 1+ /uL (Negative) Urine Nitrite Negative (Negative) Urine Bilirubin Negative (Negative) Urine Urobilinogen Normal mg/dL (Negative) Urine Leukocyte Esterase Negative /uL (Negative) Urine RBC 1 /hpf (0 - 4) Urine Microscopic WBC 10 /HPF (0-5) Urine Squamous Epithelial Cells Mod /hpf (<5) Urine Bacteria Few /hpf (None Seen) Urine Creatinine 93.22 mg/dL (30.0-125.0) Urine Protein/Creatinine Ratio 7.88 Urine Glucose 2+ mg/dL (Normal) Urine Total Protein 735.0 mg/dL (1-14) Urine Opiates Screen Neg (NEGATIVE) Urine Fentanyl Screen Neg (NEGATIVE) Urine Barbiturates Screen Neg (NEGATIVE) Urine Phencyclidine Screen Neg (NEGATIVE) Urine Amphetamines Screen Neg (NEGATIVE) Urine Benzodiazepines Screen Neg (NEGATIVE) Urine Cocaine Screen Neg (NEGATIVE) Urine Cannabinoids Screen Neg (NEGATIVE) Test 11/07/24 11:23 Hemoglobin A1c 6.7 % A1C (<5.7) Anti-Nuclear Antibody Comment Comment (.) ALEJA-1 Antibody <0.2 AI (0.0-0.9) SS-A/Ro Antibody <0.2 AI (0.0-0.9) SS-B/La Antibody <0.2 AI (0.0-0.9) Sm Antibody <0.2 AI (0.0-0.9) [employer] OPERATOR Antibody <0.2 AI (0.0-0.9) Scl-70 (Scleroderma) Antibody <0.2 AI (0.0-0.9) Anti-Double Strand DNA Antibody 2 IU/mL (0-9) Chromatin Antibody <0.2 AI (0.0-0.9) Centromere B Antibody <0.2 AI (0.0-0.9) Other Laboratory Tests 11/10/24 10:48 Brief Hx & Hospital Course: This is a 23-year-old female with past medical history of hypertension, asthma, type 1 diabetes mellitus diagnosed since the age of [age] years old (patient has an insulin pump). The patient presented to the ED referred by her PCP due to hyperkalemia and decreased kidney function. The patient reports that she has been having bilateral lower extremity swelling that is more prominent on the left lower extremity. The patient is denies fever/chills, chest pain, shortness of breath, abdominal pain or any other additional symptoms. Initial labs showed a WBC of 5.7, hemoglobin of 10.6, potassium was 5.3, BUN 22 and creatinine 1.49. Blood glucose was 224. Urinalysis came back suggesting UTI, we ordered a bilateral lower extremity venous Doppler which showed no evidence of DVT at this time. We will order kidney ultrasound and renal artery ultrasound to check for fibromuscular dysplasia or renal artery stenosis. We will also order urine protein, urine protein to creatinine ratio to calculate total urine protein for possible nephrotic syndrome. Patient will be admitted for further assessment and management. Hyperkalemia and hyponatremia due to lasix, creat improved and was dc with close follow up with PCP Condition at Discharge: Good Final Diagnosis/Problems List Acute kidney injury on CKD stage 3 Hyponatremia Hyperkalemia Discharge Disposition: Home Discharge Instruct/Medications Diet: Regular Activity: No Restrictions, As Tolerated Discharge Statement: "Patient was advised to return to the ER or call 911 if any headaches, dizziness, shortness of breath, chest pain, abdominal pain, bleeding, fevers, or worsening of medical condition. Patient was counseled about treatment plan, medications, possible side effects, patientverbalized understanding. All questions were answered to the best of my ability. This discharge took greater then 30 minutes in planning, reviewing documentation, counseling the patient, and discussing with other team members." ASSESSMENT ASSESSMENT Assessment Date of Service: Nov 10, 2024 Billing Provider: ZACKARY STEIN MD Common Visit Codes: 74687-TSK/OBS DISCH DAY >30min ZACKARY STEIN MD Nov 10, 2024 14:32
[2024-11-10 15:55] VITALS: BP 142/87; PULSE 87; RESP 20; TEMP 97.8; O2SAT 95
== END 2024-11-10 16:32 | disposition home or self-care (01) | DRG 469 ==
LOC: ER 10:20 → OVERFLOW 20:49 → EAST 20:58
PROVIDERS: ADMIT Hospitalist; ATTEND Hospitalist
DX: N17.0 Acute kidney failure with tubular necrosis (principal); E10.22 Type 1 diabetes mellitus with diabetic chronic kidney disease; D63.1 Anemia in chronic kidney disease; E87.5 Hyperkalemia; N18.30 Chronic kidney disease, stage 3 unspecified; E10.65 Type 1 diabetes mellitus with hyperglycemia; J45.909 Unspecified asthma, uncomplicated; I12.9 Hypertensive chronic kidney disease with stage 1 through stage 4 chronic kidney disease, or unspecified chronic kidney disease; E87.1 Hypo-osmolality and hyponatremia; Z96.41 Presence of insulin pump (external) (internal); T50.1X5A Adverse effect of loop [high-ceiling] diuretics, initial encounter; Y92.89 Other specified places as the place of occurrence of the external cause; Z79.4 Long term (current) use of insulin; Z86.718 Personal history of other venous thrombosis and embolism; Z83.3 Family history of diabetes mellitus; Z82.1 Family history of blindness and visual loss; Z82.49 Family history of ischemic heart disease and other diseases of the circulatory system; Z79.899 Other long term (current) drug therapy; Z90.49 Acquired absence of other specified parts of digestive tract; N30.01 Acute cystitis with hematuria
CPT/HCPCS: 36415; 80048; 80053; 80061; 80307; 81001; 82570; 82962; 83036; 83516; 84132; 84156; 85025; 86225; 86235; 87086; 93971; 93976; 94640; 96374; G0378; J1815

== ENCOUNTER → 2024-11-15 | Outpatient (CLI) | payer MEDICAID ==
[~2024-11-15] MED LIST changes: -FURO20TA3 PO
[2024-11-17 04:06] LABS: Chlamydia Trachomatis, NAA Negative (Negative); Neisseria gonorrhoeae, NAA Negative (Negative)
== END | disposition home or self-care (01) ==
LOC: LAB 11:05
DX: Z11.3 Encounter for screening for infections with a predominantly sexual mode of transmission (principal)
CPT/HCPCS: 36415; 86592; 86703; 86803; 87340; 87902

== ENCOUNTER 2025-01-24 10:11 | Emergency (ER) | payer MEDICAID ==
[~2025-01-24] VITALS: Ht 154.9 cm; Wt 71.4 kg
[2025-01-24 10:46] LABS: Urine Bacteria None Seen /hpf (None Seen)
--- NOTE | 2025-01-24 10:51 | ED.PDOC ---
History of Present Illness HPI Comments 24-year-old female came to the ER stating that she has been having cold cough for the past two weeks. She has not been taking any medication for her cold symptoms. She denies shortness a breath chest pain. She was at primary care physician office for which she was referred to the ER. Her blood pressure was 149/99. She does have a history of hypertension diabetes. She does have irregular menstrual cycles. She states that she was seen by her primary care physician several weeks ago for which she was diagnosed to have normal . She states that she is approximately six weeks . This is her 1st . Denies any other symptoms. Chief Complaint: High Blood Pressure Time Seen by MD: 10:39 Primary Care Provider: CHIRAG Lindsey Notes: Nurses Notes, Medications, Allergies Allergies: Coded Allergies: NO KNOWN ALLERGIES (Unverified , 02/22/22) Home Meds Active Scripts Insulin Glargine (Lantus) 100 Unit/Ml Inj, 20 UNIT SC HS for 30 Days, #30 INJ Prov:ENDY DANIELSON MD 02/24/22 Reported Medications Insulin NPH Isophane & Reg (Hu (Novolin 70/30 (70-30) 100 Unit/ml) 1 Inj Inj, 1 INJ SC TID, INJ 02/23/22 Information Source: Patient Mode of Arrival: Ambulatory Severity: Moderate Timing: Days Duration: Since onset Past Medical History PAST MEDICAL HISTORY: Asthma, DM Surgical History: Cholecystectomy 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: No 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 Family History Family History: Reviewed,noncontributory to illness Social History Smoker: Non-Smoker Alcohol: Denies ETOH Use Drugs: Denies Drug Use Lives In: Home Constitutional: denies: chills, diaphoresis, fatigue, fever, malaise, sweats, weakness, others EENTM: denies: blurred vision, double vision, ear bleeding, ear discharge, ear drainage, ear pain, ear ringing, eye pain, eye redness, hearing loss, mouth pain, mouth swelling, nasal discharge, nose bleeding, nose congestion, nose pain, photophobia, tearing, throat pain, throat swelling, voice changes, others Respiratory: reports: cough; denies: hemoptysis, orthopnea, SOB at rest, shortness of breath, SOB with excertion, stridor, wheezing, others Cardiovascular: denies: chest pain, dizzy spells, diaphoresis, Dyspnea on exertion, edema, irregular heart beat, left arm pain, lightheadedness, palpitations, PND, syncope, others Gastrointestinal: denies: abdomen distended, abdominal pain, blood streaked bowels, constipated, diarrhea, dysphagia, difficulty swallowing, hematemesis, melena, nausea, poor appetite, poor fluid intake, rectal bleeding, rectal pain, vomiting, others Genitourinary: denies: abnormal vagina bleeding, burning, dyspareunia, dysuria, flank pain, frequency, hematuria, incontinence, pain, , vagina discharge, urgency, others Neurological: denies: dizziness, fainting, headache, left sided numbness, left sided weakness, numbness, paresthesia, pre-existing deficit, right sided numbness, right sided weakness, seizure, speech problems, tingling, tremors, weakness, others Musculoskeletal: denies: back pain, gout, joint pain, joint swelling, muscle pain, muscle stiffness, neck pain, others Integumetry: denies: bruises, change in color, change in hair/nails, dryness, laceration, lesions, lumps, rash, wounds, others Allergic/Immunocompromised: denies: Difficulty Healing, Frequent Infections, Hives, Itching, others Hematologic/Lymphatic: denies: anemia, blood clots, easy bleeding, easy bruising, swollen glands, others Endocrine: denies: excessive hunger, excessive sweating, excessive thirst, excessive urination, flushing, intolerance to cold, intolerance to heat, unexplained weight gain, unexplained weight loss, others Psychiatric: denies: anxiety, bipolar disorder, depression, hopeless, panic disorder, schizophrenia, sleepless, suicidal, others Physical Exam General Appearance: Moderate Distress HEENT: Normal ENT Inspection, Pharynx Normal, TMs Normal Neck: Full Range of Motion, Non-Tender, Normal, Normal Inspection Respiratory: Chest Non-Tender, Lungs Clear, No Accessory Muscle Use, No Respiratory Distress, Normal Breath Sounds Cardiovascular: No Edema, No JVD, No Murmur, No Gallop, Normal Peripheral Pulses, Regular Rate/Rhythm Breast Exam: Deferred Gastrointestinal: No Organomegaly, Non Tender, No Pulsatile Mass, Normal Bowel Sounds, Soft Genitalia: Deferred Pelvic: Deferred Rectal: Deferred Extremities: No calf tenderness, Normal capillary refill, Normal inspection, Normal range of motion, Non-tender, No pedal edema Musculoskeletal : Apperance: Normal Neurologic: Alert, tube man II-XII nml as Tested, No Motor Deficits, Normal Affect, Normal Mood, No Sensory Deficits Cerebellar Function: Normal Reflexes: Normal Skin: Dry, Normal Color, Warm Peripheral Pulses: 3+ Radial (R), 3+ Radial (L) Lymphatic: No Adenopathy Was a procedure done? Was a procedure done?: No Differential Dx Considerations may include: Normal Electrolyte imbalance X-Ray, Labs, Meds, VS Vital Signs Date Time Temp Pulse Resp B/P (MAP) Pulse Ox O2 Delivery O2 Flow Rate FiO2 01/24/25 13:40 98.6 73 16 154/89 (110) 97 98.6 01/24/25 11:31 101 16 100 Room Air* 0 21 01/24/25 11:03 98.1 101 16 156/98 (117) 100 98.1 01/24/25 11:03 101 16 100 Room Air 01/24/25 10:20 98.7 88 16 149/99 (116) 97 98.7 Lab Test 01/24/25 10:53 01/24/25 10:30 Range/Units White Blood Count 10.4 4.4-10.8 10^3/uL Red Blood Count 3.63 L 4.0-5.20 10^6/uL Hemoglobin 11.4 L 12.2-16.2 g/dL Hematocrit 32.7 L 36.0-46.0 % Mean Corpuscular Volume 90.2 80.0-100.0 fL Mean Corpuscular Hemoglobin 31.3 28.0-32.0 pg Mean Corpuscular Hemoglobin Concent 34.7 32.0-36.0 g/dL Red Cell Distribution Width 12.1 11.8-14.3 % Platelet Count 441 140-450 10^3/uL Mean Platelet Volume 7.1 6.9-10.8 fL Neutrophils (%) (Auto) 68.8 37.0-80.0 % Lymphocytes (%) (Auto) 24.8 10.0-50.0 % Monocytes (%) (Auto) 5.2 0.0-12.0 % Eosinophils (%) (Auto) 0.8 0.0-7.0 % Basophils (%) (Auto) 0.4 0.0-2.0 % Neutrophils # (Auto) 7.2 1.6-8.6 10 ^3/uL Lymphocytes # (Auto) 2.6 0.4-5.4 10 ^3/uL Monocytes # (Auto) 0.5 0-1.3 10 ^3/uL Eosinophils # (Auto) 0.1 0-0.8 10 ^3/uL Basophils # (Auto) 0 0-0.2 10 ^3/uL Nucleated Red Blood Cells 0.1 % Sodium Level 138 136-145 mmol/L Potassium Level 4.2 3.5-5.1 mmol/L Chloride Level 110 H 98-107 mmol/L Carbon Dioxide Level 19 L 20-31 mmol/L Anion Gap 9 5-15 Blood Urea Nitrogen 24 H 9-23 mg/dL Creatinine 1.59 H 0.550-1.02 mg/dL Glomerular Filtration Rate Calc 46 >90 mL/min BUN/Creatinine Ratio 15.1 10.0-20.0 Serum Glucose 146 H 74-106 mg/dL Calcium Level 9.4 8.7-10.4 mg/dL Beta HCG, Quantitative 72081.1 H 1.5-4.2 mIU/mL Urine Color Light-yellow Yellow Urine Clarity Turbid H Clear Urine pH 6.5 5.0-9.0 Urine Specific [place] 1.021 1.001-1.035 Urine Protein 3+ H Negative Urine Ketones Negative Negative Urine Blood 2+ H Negative /uL Urine Nitrite Negative Negative Urine Bilirubin Negative Negative Urine Urobilinogen Normal Negative mg/dL Urine Leukocyte Esterase Trace Negative /uL Urine RBC 10 0 - 4 /hpf Urine Microscopic WBC 55 H 0-5 /HPF Urine Squamous Epithelial Cells Few <5 /hpf Urine Bacteria None seen None Seen /hpf Urine Hyaline Casts Mod 0 - 2 /lpf Urine Mucus Few None Seen Urine Glucose 2+ H Normal mg/dL Patient alert. Came in because of high blood pressure. Blood pressure due to her . Vitals stable. OBGYN did not recommend any medication. Was instructed to follow up with high-risk . Pressure not extremely elevated on examination. Urinalysis shows UTI. Was given prescription of Keflex antibiotic. Ultrasound reveals normal . Blood sugar slightly elevated. Reviewed her history. Explained to the patient. Told to follow up with her OBGYN. Was told to follow up with her primary care physician. Was told to come back if there is any problem. Time of 1ST Reevaluation: 10:50 Reevaluation 1ST: Improved Patient Education/Counseling: Diagnosis, Treatment, Prognosis, Need For Follow Up Family Education/Counseling: No Family Present Departure 1 Departure Time of Disposition: 10:50 Impression: Primary Impression: Normal Qualified Codes: Z34.90 - Encounter for supervision of normal , unspecified, unspecified trimester Additional Impressions: HTN (hypertension) Qualified Codes: I10 - Essential (primary) hypertension UTI (urinary tract infection) Qualified Codes: N30.00 - Acute cystitis without hematuria Disposition: 01 HOME / SELF CARE / HOMELESS Condition: Good e-Prescriptions Cephalexin (KEFLEX CAPSULE) 250 Mg Cp 250 MG PO QID for 7 Days, #28 BOTTLE Prov: AKIL HALEY MD 01/24/25 Discharged With: Self Critical Care Note Critical Care Time?: No Stability Stability form required: No Heart Score Heart Score: Heart Score Response (Comments) Value History N/A 0 EKG N/A 0 Age N/A 0 Risk Factors N/A 0 Troponin N/A 0 Total 0 AKIL HALEY MD January 24, 2025 10:51
[2025-01-24 10:55] LABS: Urine Blood 2+ /uL (Negative); Urine Clarity Turbid (Clear); Urine Color Light-Yellow (Yellow); Urine Hyaline Cast MOD /lpf (0 - 2); Urine Mucus FEW (None Seen); Urine Protein, UAD 3+ (Negative); Urine Specific Gravity 1.021 (1.001-1.035); Urine Squamous Epithelial Cell FEW /hpf (<5); Urine Urobilinogen Normal (Negative); Urine WBC 55 /HPF (0-5); Urine pH 6.5 (5.0-9.0)
[2025-01-24 11:11] LABS: Potassium 4.2 mmol/L (3.5-5.1); Sodium 138 mmol/L (136-145)
[2025-01-24 11:12] LABS: Anion Gap 9 (5-15)
[2025-01-24 11:13] LABS: Basophils # (auto) 0 10 ^3/uL (0-0.2); Basophils % (auto) 0.4 % (0.0-2.0); Calcium 9.4 mg/dL (8.7-10.4); Carbon Dioxide 19 mmol/L (20-31); Chloride 110 mmol/L (98-107); Eosinophils # (auto) 0.1 10 ^3/uL (0-0.8); Eosinophils % (auto) 0.8 % (0.0-7.0); Hematocrit 32.7 % (36.0-46.0); Hemoglobin 11.4 g/dL (12.2-16.2); Lymphocytes # (auto) 2.6 10 ^3/uL (0.4-5.4); Lymphocytes % (auto) 24.8 % (10.0-50.0); Mean Corpuscular Hemoglobin 31.3 pg (28.0-32.0); Mean Corpuscular Hgb Conc. 34.7 g/dL (32.0-36.0); Mean Corpuscular Volume 90.2 fL (80.0-100.0); Monocytes # (auto) 0.5 10 ^3/uL (0-1.3); Monocytes % (auto) 5.2 % (0.0-12.0); Neutrophils # (auto) 7.2 10 ^3/uL (1.6-8.6); Neutrophils % (auto) 68.8 % (37.0-80.0); Nucleated Red Blood Cells % 0.1 %; Platelet Count (auto) 441 10^3/uL (140-450); Red Blood Cells 3.63 10^6/uL (4.0-5.20); Red Cell Distribution Width 12.1 % (11.8-14.3); White Blood Cell 10.4 10^3/uL (4.4-10.8)
[2025-01-24 11:18] LABS: BUN/Creatinine Ratio 15.1 (10.0-20.0); Blood Urea Nitrogen 24 mg/dL (9-23); Glucose 146 mg/dL (74-106)
[2025-01-24 11:31] VITALS: PULSE 101; RESP 16; O2SAT 100
--- NOTE | 2025-01-24 12:56 | DVH ---
OB ULTRASOUND <14 WEEKS: HISTORY: cramping TECHNIQUE: Multiple real-time grayscale sonographic images of the pelvis with duplex Doppler color fl ow, spectral and M-mode analysis. TRANSDUCERS: Transabdominal COMPARISON: None FINDINGS: The uterus measures 9.8 x 6.6 x 6.2 cm The cervix is not visualized IUP single fetus at 7 weeks and 0 days average ultrasound age based on mean crown-rump length of 0.9 5 cm and gestational sac size of 2.3 cm heart rate detected at 135 beats per minute. Yolk sac is present. Amniotic fluid is subjectively within normal limits. Britany-gestational space: Unremarkable IMPRESSION: IUP single live fetus 7 weeks and 0 days AUA corresponding to an ALAN of 09/12/2025. No acute abnormality detected.
[2025-01-24 13:40] VITALS: BP 154/89; PULSE 73; RESP 16; TEMP 98.6; O2SAT 97
[2025-01-24] MEDS ORDERED: CEPH250C PO (13:50)
== END 2025-01-24 14:01 | disposition home or self-care (01) ==
LOC: ER 10:11
DX: O23.41 Unspecified infection of urinary tract in pregnancy, first trimester (principal); N39.0 Urinary tract infection, site not specified; O16.1 Unspecified maternal hypertension, first trimester; O26.891 Other specified pregnancy related conditions, first trimester; E11.9 Type 2 diabetes mellitus without complications; J45.909 Unspecified asthma, uncomplicated; Z3A.01 Less than 8 weeks gestation of pregnancy; Z90.49 Acquired absence of other specified parts of digestive tract
CPT/HCPCS: 36415; 76801; 80048; 81001; 84702; 85025